=== PATIENT | female | born 1945 | race Caucasian/White ===

== ENCOUNTER → 2016-06-10 | Outpatient (REF) | payer MEDICARE, BC | LOC: M SFHCADAM 10:50 | PROVIDERS: ATTEND Family Medicine | DX: E11.9 Type 2 diabetes mellitus without complications (principal) ==

== ENCOUNTER → 2016-09-02 | Outpatient (REF) | payer MEDICARE, BC | LOC: M LAB REF 09:37 | PROVIDERS: ATTEND Physician Assistant | DX: R30.0 Dysuria (principal) ==

== ENCOUNTER → 2016-09-13 | Outpatient (REF) | payer MEDICARE, BC ==
[2016-09-13 13:18] LABS: ALBUMIN 3.9 GM/DL (3.2-5.2); ALBUMIN/GLOBULIN RATIO 1.3 (1.00-1.93); BILIRUBIN,TOTAL 0.5 MG/DL (0.2-1.0); CALCIUM LEVEL 8.7 MG/DL (8.8-10.2); GLOMERULAR FILTRATION RATE 58.4 (>39); POTASSIUM SERUM 4.2 MEQ/L (3.5-5.1); TOTAL PROTEIN 6.9 GM/DL (6.4-8.2)
== END ==
LOC: M LABDRWAD 12:25
PROVIDERS: ATTEND Internal Medicine Cardiovascular Disease
DX: R06.02 Shortness of breath (principal); E66.9 Obesity, unspecified; E11.9 Type 2 diabetes mellitus without complications; E78.2 Mixed hyperlipidemia; I10 Essential (primary) hypertension; R53.83 Other fatigue; R94.31 Abnormal electrocardiogram [ECG] [EKG]

== ENCOUNTER → 2017-03-28 | Outpatient (REF) | payer MEDICARE, BC ==
[2017-03-28 12:46] LABS: BASO % 0.6 % (0.0-1.0); EOS # 0.1 10^3/uL (0.0-0.50); EOS % 1.5 % (0.0-3.0); IMMATURE GRANULOCYTE % 0.4 % (0-0); LYMPH # 2.4 10^3/uL (1.5-4.5); LYMPH % 35.2 % (24.0-44.0); MEAN CORPUSCULAR HEMOGLOBIN 29.8 pg (27.0-33.0); MEAN CORPUSCULAR VOLUME 87.8 fl (80.0-96.0); MONO # 0.6 10^3/uL (0.0-0.8); MONO % 8.6 % (0.0-5.0); NEUTROPHILS # 3.7 10^3/uL (1.8-7.7); NEUTROPHILS % 53.7 % (36.0-66.0); PLATELET COUNT, AUTOMATED 161 10^3/uL (150-450); RED CELL DISTRIBUTION WIDTH 13.1 % (11.5-14.5); WHITE BLOOD COUNT 6.9 10^3/uL (4.0-10.0)
[2017-03-28 13:55] LABS: ALBUMIN 3.8 GM/DL (3.2-5.2); ALBUMIN/GLOBULIN RATIO 1.23 (1.00-1.93); BILIRUBIN,TOTAL 0.7 MG/DL (0.2-1.0); CALCIUM LEVEL 8.9 MG/DL (8.8-10.2); CREATININE FOR GFR 1.02 MG/DL (0.55-1.02); POTASSIUM SERUM 4.2 MEQ/L (3.5-5.1); TOTAL PROTEIN 6.9 GM/DL (6.4-8.2)
== END ==
LOC: M LABDRWAD 12:22
PROVIDERS: ATTEND Internal Medicine Cardiovascular Disease
DX: I25.10 Atherosclerotic heart disease of native coronary artery without angina pectoris (principal); R53.83 Other fatigue; R94.31 Abnormal electrocardiogram [ECG] [EKG]; R06.2 Wheezing; E66.9 Obesity, unspecified; E78.2 Mixed hyperlipidemia; E11.9 Type 2 diabetes mellitus without complications

== ENCOUNTER → 2017-04-30 | Outpatient (REF) | payer MEDICARE, BC | LOC: M LAB REF 13:53 | PROVIDERS: ATTEND Physician Assistant Medical | DX: M54.5 Low back pain (principal); E11.9 Type 2 diabetes mellitus without complications; I10 Essential (primary) hypertension ==

== ENCOUNTER → 2017-05-20 | Outpatient (REF) | payer MEDICARE, BC ==
[2017-05-20 14:17] LABS: ALBUMIN 3.9 GM/DL (3.2-5.2); ALBUMIN/GLOBULIN RATIO 1.15 (1.00-1.93); ALKALINE PHOSPHATASE 91 U/L (45-117); ALT/SGPT 63 U/L (12-78); AST/SGOT 66 U/L (7-37); BILIRUBIN,DIRECT 0.2 MG/DL (0.0-0.2); BILIRUBIN,TOTAL 0.7 MG/DL (0.2-1.0); CHOLESTEROL LEVEL 145 MG/DL (<200); CHOLESTEROL RISK RATIO 3.452 (<5); CPK CREATINE PHOSPHOKINASE 38 U/L (26-192); HDL CHOLESTEROL 42 MG/DL (>40); LDL CHOLESTEROL 67.6 MG/DL (<100); NON-HDL-C 103 MG/DL; TOTAL PROTEIN 7.3 GM/DL (6.4-8.2); TRIGLYCERIDES LEVEL 177 MG/DL (<150)
== END ==
LOC: M LABDRWAD 13:15
DX: I25.10 Atherosclerotic heart disease of native coronary artery without angina pectoris (principal); E66.9 Obesity, unspecified; E78.2 Mixed hyperlipidemia
CPT/HCPCS: 82550

== ENCOUNTER → 2017-08-25 | Outpatient (CLI) | payer MEDICARE, BC ==
[2017-08-25 14:17] LABS: ALBUMIN 4.1 GM/DL (3.2-5.2); ALBUMIN/GLOBULIN RATIO 1.21 (1.00-1.93); ALKALINE PHOSPHATASE 71 U/L (45-117); ALT/SGPT 59 U/L (12-78); ANION GAP 7 MEQ/L (8-16); AST/SGOT 45 U/L (7-37); BILIRUBIN,TOTAL 0.5 MG/DL (0.2-1.0); BLOOD UREA NITROGEN 13 MG/DL (7-18); CARBON DIOXIDE LEVEL 28 MEQ/L (21-32); CHLORIDE LEVEL 105 MEQ/L (98-107); CHOLESTEROL LEVEL 168 MG/DL (<200); CREATININE FOR GFR 0.95 MG/DL (0.55-1.30); FREE T4 1.07 NG/DL (0.76-1.46); GLOMERULAR FILTRATION RATE > 60.0 (>39); GLUCOSE, FASTING 120 MG/DL (70-100); HDL CHOLESTEROL 42 MG/DL (>40); LDL CHOLESTEROL 99.4 MG/DL (<100); NON-HDL-C 126 MG/DL; POTASSIUM SERUM 4.4 MEQ/L (3.5-5.1); SODIUM LEVEL 140 MEQ/L (136-145); THYROID STIMULATING HORMONE 0.698 uIU/ML (0.358-3.740); TOTAL PROTEIN 7.5 GM/DL (6.4-8.2); TRIGLYCERIDES LEVEL 133 MG/DL (<150)
[2017-08-25 14:38] LABS: MALB URINE SIEMENS 6.5 MG/L
[2017-08-25 14:45] LABS: ESTIMATED AVERAGE GLUCOSE 151 MG/DL (60-110); HEMOGLOBIN A1c 6.9 %
[2017-08-26 13:15] LABS: HEPATITIS C VIRUS ABY INDEX < 0.0 INDEX (<0.8)
== END ==
LOC: M SMT 10:12
DX: Z00.01 Encounter for general adult medical examination with abnormal findings (principal); E11.65 Type 2 diabetes mellitus with hyperglycemia
CPT/HCPCS: 84443

== ENCOUNTER → 2017-11-18 | Outpatient (CLI) | payer MEDICARE, BC ==
[2017-11-18 14:16] LABS: ANION GAP 9 MEQ/L (8-16); BLOOD UREA NITROGEN 16 MG/DL (7-18); CARBON DIOXIDE LEVEL 28 MEQ/L (21-32); CHLORIDE LEVEL 103 MEQ/L (98-107); CREATININE FOR GFR 1.13 MG/DL (0.55-1.30); GLOMERULAR FILTRATION RATE 50.5 (>39); GLUCOSE, FASTING 92 MG/DL (70-100); POTASSIUM SERUM 4.2 MEQ/L (3.5-5.1); SODIUM LEVEL 140 MEQ/L (136-145)
[2017-11-18 14:23] LABS: ESTIMATED AVERAGE GLUCOSE 120 MG/DL (60-110); HEMOGLOBIN A1c 5.8 %
== END ==
LOC: M SMT 09:46
DX: E11.65 Type 2 diabetes mellitus with hyperglycemia (principal)
CPT/HCPCS: 83036

== ENCOUNTER → 2018-01-11 | Outpatient (CLI) | payer MEDICARE, BC ==
[2018-01-11 14:31] LABS: ALBUMIN 4.2 GM/DL (3.2-5.2); ALBUMIN/GLOBULIN RATIO 1.45 (1.00-1.93); ALKALINE PHOSPHATASE 70 U/L (45-117); ALT/SGPT 44 U/L (12-78); ANION GAP 11 MEQ/L (8-16); AST/SGOT 39 U/L (7-37); BILIRUBIN,TOTAL 0.5 MG/DL (0.2-1.0); BLOOD UREA NITROGEN 13 MG/DL (7-18); CALCIUM LEVEL 9.1 MG/DL (8.8-10.2); CARBON DIOXIDE LEVEL 27 MEQ/L (21-32); CHLORIDE LEVEL 106 MEQ/L (98-107); CHOLESTEROL LEVEL 158 MG/DL (<200); CHOLESTEROL RISK RATIO 3.853 (<5); CREATININE FOR GFR 0.95 MG/DL (0.55-1.30); FREE T4 1.12 NG/DL (0.76-1.46); GLOMERULAR FILTRATION RATE > 60.0 (>39); GLUCOSE, FASTING 117 MG/DL (70-100); HDL CHOLESTEROL 41 MG/DL (>40); LDL CHOLESTEROL 79.8 MG/DL (<100); NON-HDL-C 117 MG/DL; POTASSIUM SERUM 4.3 MEQ/L (3.5-5.1); SODIUM LEVEL 144 MEQ/L (136-145); TOTAL PROTEIN 7.1 GM/DL (6.4-8.2); TRIGLYCERIDES LEVEL 186 MG/DL (<150)
[2018-01-11 15:44] LABS: ESTIMATED AVERAGE GLUCOSE 120 MG/DL (60-110); HEMOGLOBIN A1c 5.8 %
== END ==
LOC: M SMT 08:50
DX: E78.2 Mixed hyperlipidemia (principal); E11.9 Type 2 diabetes mellitus without complications
CPT/HCPCS: 84443

== ENCOUNTER → 2018-05-26 | Outpatient (CLI) | payer MEDICARE, OTHER ==
[2018-05-26 12:21] LABS: CALCIUM LEVEL 9.3 MG/DL (8.8-10.2); CREATININE FOR GFR 1.12 MG/DL (0.55-1.30); GLOMERULAR FILTRATION RATE 50.9 (>39); POTASSIUM SERUM 4.4 MEQ/L (3.5-5.1)
[2018-05-26 13:28] LABS: HEMOGLOBIN A1c 6.1 %
== END ==
LOC: M SMT 09:04
PROVIDERS: ATTEND Physician Assistant
DX: E11.9 Type 2 diabetes mellitus without complications (principal)

== ENCOUNTER → 2018-05-26 | Outpatient (CLI) | payer MEDICARE, OTHER ==
[2018-05-26 12:22] LABS: HEMATOCRIT 44.2 % (36.0-47.0); HEMOGLOBIN 14.5 g/dl (12.0-15.5); MEAN CORPUSCULAR HEMOGLOBIN 29.3 pg (27.0-33.0); MEAN CORPUSCULAR HGB CONC 32.8 g/dl (32.0-36.5); MEAN CORPUSCULAR VOLUME 89.3 fl (80.0-96.0); PLATELET COUNT, AUTOMATED 230 10^3/uL (150-450); RED BLOOD COUNT 4.95 10^6/uL (4.00-5.40)
[2018-05-26 12:26] LABS: ALBUMIN 4.2 GM/DL (3.2-5.2); BILIRUBIN,TOTAL 0.8 MG/DL (0.2-1.0); CALCIUM LEVEL 9.2 MG/DL (8.8-10.2); CHOLESTEROL RISK RATIO 3.59 (<5); CREATININE FOR GFR 1.11 MG/DL (0.55-1.30); GLOMERULAR FILTRATION RATE 51.4 (>39); POTASSIUM SERUM 4.4 MEQ/L (3.5-5.1); TOTAL PROTEIN 7.5 GM/DL (6.4-8.2)
== END ==
LOC: M SMT 09:08
PROVIDERS: ATTEND Internal Medicine Cardiovascular Disease
DX: R07.9 Chest pain, unspecified (principal); I65.23 Occlusion and stenosis of bilateral carotid arteries; I25.10 Atherosclerotic heart disease of native coronary artery without angina pectoris; R06.02 Shortness of breath; E66.9 Obesity, unspecified; E78.2 Mixed hyperlipidemia; I10 Essential (primary) hypertension

== ENCOUNTER → 2018-08-28 | Outpatient (CLI) | payer MEDICARE ==
[2018-08-28 13:53] LABS: BASO % 0.4 % (0.0-1.0); EOS # 0.1 10^3/uL (0.0-0.50); EOS % 1.5 % (0.0-3.0); HEMATOCRIT 38.3 % (36.0-47.0); HEMOGLOBIN 13.2 g/dl (12.0-15.5); LYMPH # 3.1 10^3/uL (1.5-4.5); LYMPH % 39.9 % (24.0-44.0); MEAN CORPUSCULAR HEMOGLOBIN 30.9 pg (27.0-33.0); MEAN CORPUSCULAR HGB CONC 34.5 g/dl (32.0-36.5); MEAN CORPUSCULAR VOLUME 89.7 fl (80.0-96.0); MONO # 0.6 10^3/uL (0.0-0.8); MONO % 7.4 % (0.0-5.0); NEUTROPHILS % 50.5 % (36.0-66.0); PLATELET COUNT, AUTOMATED 221 10^3/uL (150-450); RED BLOOD COUNT 4.27 10^6/uL (4.00-5.40); WHITE BLOOD COUNT 7.8 10^3/uL (4.0-10.0)
[2018-08-28 13:56] LABS: ALBUMIN 4.2 GM/DL (3.2-5.2); BILIRUBIN,TOTAL 0.5 MG/DL (0.2-1.0); CALCIUM LEVEL 8.8 MG/DL (8.8-10.2); CHOLESTEROL RISK RATIO 3.674 (<5); CREATININE FOR GFR 0.99 MG/DL (0.55-1.30); GLOMERULAR FILTRATION RATE 58.7 (>39); POTASSIUM SERUM 4.2 MEQ/L (3.5-5.1); TOTAL PROTEIN 6.9 GM/DL (6.4-8.2)
[2018-08-28 14:33] LABS: MALB URINE SIEMENS 9.7 MG/L
[2018-08-28 15:29] LABS: HEMOGLOBIN A1c 6.2 %
== END ==
LOC: M SMT 09:18
PROVIDERS: ATTEND Family Medicine
DX: E11.9 Type 2 diabetes mellitus without complications (principal); E78.2 Mixed hyperlipidemia; I10 Essential (primary) hypertension

== ENCOUNTER → 2018-11-24 | Outpatient (CLI) | payer MEDICARE ==
[2018-11-24 13:45] LABS: CALCIUM LEVEL 9.3 MG/DL (8.8-10.2); CREATININE FOR GFR 0.98 MG/DL (0.55-1.30); GLOMERULAR FILTRATION RATE 59.4 (>39); POTASSIUM SERUM 4.5 MEQ/L (3.5-5.1)
[2018-11-24 14:03] LABS: HEMOGLOBIN A1c 6.3 %
== END ==
LOC: M SMT 09:56
PROVIDERS: ATTEND Physician Assistant
DX: E11.9 Type 2 diabetes mellitus without complications (principal)

== ENCOUNTER → 2019-02-26 | Outpatient (CLI) | payer MEDICARE ==
[2019-02-26 10:39] LABS: BASO % 0.6 % (0.0-1.0); EOS # 0.1 10^3/uL (0.0-0.5); EOS % 2.1 % (0.0-3.0); HEMATOCRIT 40.3 % (36.0-47.0); HEMOGLOBIN 13.2 g/dl (12.0-15.5); LYMPH % 43.9 % (24.0-44.0); MEAN CORPUSCULAR HEMOGLOBIN 29.2 pg (27.0-33.0); MEAN CORPUSCULAR HGB CONC 32.8 g/dl (32.0-36.5); MEAN CORPUSCULAR VOLUME 89.2 fl (80.0-96.0); MONO # 0.5 10^3/uL (0.0-0.8); MONO % 7.8 % (0.0-5.0); NEUTROPHILS # 3.1 10^3/uL (1.5-8.5); NEUTROPHILS % 45.3 % (36.0-66.0); PLATELET COUNT, AUTOMATED 215 10^3/uL (150-450); RED BLOOD COUNT 4.52 10^6/uL (4.00-5.40); WHITE BLOOD COUNT 6.8 10^3/uL (4.0-10.0)
[2019-02-26 11:11] LABS: ALBUMIN 3.9 GM/DL (3.2-5.2); BILIRUBIN,TOTAL 0.4 MG/DL (0.2-1.0); CALCIUM LEVEL 8.8 MG/DL (8.8-10.2); CREATININE FOR GFR 1.06 MG/DL (0.55-1.30); GLOMERULAR FILTRATION RATE 54.2 (>39); POTASSIUM SERUM 4.1 MEQ/L (3.5-5.1); TOTAL PROTEIN 6.9 GM/DL (6.4-8.2)
[2019-02-26 12:40] LABS: HEMOGLOBIN A1c 6.5 %
== END ==
LOC: M SMT 08:58
PROVIDERS: ATTEND Family Medicine
DX: E11.9 Type 2 diabetes mellitus without complications (principal); I10 Essential (primary) hypertension

== ENCOUNTER → 2019-05-30 | Outpatient (CLI) | payer MEDICARE ==
[2019-05-30 13:33] LABS: ALBUMIN 4.2 GM/DL (3.2-5.2); BILIRUBIN,TOTAL 0.6 MG/DL (0.2-1.0); CALCIUM LEVEL 8.8 MG/DL (8.8-10.2); CHOLESTEROL RISK RATIO 3.775 (<5); CREATININE FOR GFR 1.16 MG/DL (0.55-1.30); FREE T4 1.25 NG/DL (0.76-1.46); GLOMERULAR FILTRATION RATE 48.8 (>39); POTASSIUM SERUM 4.4 MEQ/L (3.5-5.1); THYROID STIMULATING HORMONE 1.06 uIU/ML (0.358-3.740)
[2019-05-30 14:42] LABS: HEMOGLOBIN A1c 6.8 %
== END ==
LOC: M PLALAB 10:09
PROVIDERS: ATTEND Physician Assistant
DX: E11.9 Type 2 diabetes mellitus without complications (principal)

== ENCOUNTER → 2019-08-31 | Outpatient (REF) | payer MEDICARE ==
[2019-08-31 18:05] LABS: BASO # 0.1 10^3/uL (0.0-0.2); BASO % 0.6 % (0.0-1.0); EOS # 0.1 10^3/uL (0.0-0.5); EOS % 1.6 % (0.0-3.0); HEMATOCRIT 45.8 % (36.0-47.0); HEMOGLOBIN 15.1 g/dl (12.0-15.5); LYMPH # 3.3 10^3/uL (1.5-5.0); LYMPH % 37.8 % (24.0-44.0); MEAN CORPUSCULAR VOLUME 87.9 fl (80.0-96.0); MONO # 0.7 10^3/uL (0.0-0.8); MONO % 7.9 % (0.0-5.0); NEUTROPHILS # 4.6 10^3/uL (1.5-8.5); NEUTROPHILS % 51.9 % (36.0-66.0); PLATELET COUNT, AUTOMATED 207 10^3/uL (150-450); RED BLOOD COUNT 5.21 10^6/uL (4.00-5.40); WHITE BLOOD COUNT 8.8 10^3/uL (4.0-10.0)
[2019-08-31 18:17] LABS: ALBUMIN 4.3 GM/DL (3.2-5.2); ALT/SGPT 28 U/L (12-78); BILIRUBIN,TOTAL 1.1 MG/DL (0.2-1.0); BLOOD UREA NITROGEN 18 MG/DL (7-18); CALCIUM LEVEL 9.1 MG/DL (8.8-10.2); CARBON DIOXIDE LEVEL 28 MEQ/L (21-32); CHLORIDE LEVEL 101 MEQ/L (98-107); CREATININE FOR GFR 0.96 MG/DL (0.55-1.30); GLOMERULAR FILTRATION RATE > 60.0 (>39); GLUCOSE, FASTING 129 MG/DL (70-100); POTASSIUM SERUM 4.4 MEQ/L (3.5-5.1); SODIUM LEVEL 136 MEQ/L (136-145); TOTAL PROTEIN 7.6 GM/DL (6.4-8.2)
[2019-08-31 18:20] LABS: HEMOGLOBIN A1c 6.9 %
== END ==
LOC: M LABDRWAD 16:55
PROVIDERS: ATTEND Family Medicine
DX: 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 mellitus with diabetic chronic kidney disease (principal)

== ENCOUNTER → 2020-05-22 | Outpatient (REF) | payer MEDICARE ==
[2020-05-22 13:49] LABS: HEMOGLOBIN A1c 5.8 %
[2020-05-22 13:50] LABS: ALBUMIN 4.5 GM/DL (3.2-5.2); CALCIUM LEVEL 9.1 MG/DL (8.8-10.2); CHOLESTEROL RISK RATIO 2.4 (<5); CREATININE FOR GFR 0.97 MG/DL (0.55-1.30); GLOMERULAR FILTRATION RATE 59.8 (>39); POTASSIUM SERUM 4.1 MEQ/L (3.5-5.1); TOTAL PROTEIN 7.4 GM/DL (6.4-8.2)
[2020-05-22 14:01] LABS: MALB URINE SIEMENS 25.1 MG/L; MAU/CREAT RATIO 9.8 MCG/MG (0.0-30.0)
== END ==
LOC: M LABDRWAD 12:33
PROVIDERS: ATTEND Family Medicine
DX: 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 mellitus with diabetic chronic kidney disease (principal); E78.2 Mixed hyperlipidemia

== ENCOUNTER → 2020-06-14 | Outpatient (CLI) | payer MEDICARE ==
[~2020-06-14] MED LIST: AMLO1TAB25 PO; APPL300T4 PO; ASPI81TA26 PO; BYDU1INJ SC; CRAN400C PO; EZET10TA21 PO; HYDR12CA PO; IRBE150T14 PO; LORA-243 PO; METO100T5 PO; NITR0.4S14 SL; ROSU20TA5 PO; THERTAB52 PO; VITA-243 PO
== END ==
LOC: M LABSMTC 10:24
PROVIDERS: ATTEND Anesthesiology
DX: Z01.812 Encounter for preprocedural laboratory examination (principal); Z20.822 Contact with and (suspected) exposure to COVID-19

== ENCOUNTER 2020-06-19 10:27 | Day surgery (SDC) | payer MEDICARE ==
[~2020-06-19] VITALS: Ht 147.3 cm; Wt 64.9 kg
[~2020-06-19 10:27] MED LIST changes: +LIDOCAINE 2% 100MG/5ML SDV (FOR ANES.) As Ordered ONE; +NS 1,000 ML IV ONE; +propofoL 200 MG/20 ML VIAL As Ordered ONE
--- OUTSIDE RECORDS SUMMARY | 2020-06-19 10:37 | CCD | Continuity of Care Document ---
Author Author Alessandra DE LA GARZA D.O. Organization Unknown Address [address] [place] [address] Phone [phone] Care Team Providers Care Ear Flap Binder Name Role Phone Jane De La Garza D.O. AUTM Davis Hurt M.D. AUTM [phone] Problems Active Problems Provider Date Essential hypertension Jane De La Garza D.O. Onset: Hyperlipidemia Jane De La Garza D.O. Onset: 2014 Gastroesophageal reflux disease Jane De La Garza D.O. O nset: 01/02/2015 Obesity Jane De La Garza D.O. Onset: 2014 Type 2 diabetes mellitus Jane De La Garza D.O. Onset: 0 02/05/2015 Mixed hyperlipidemia Jane De La Garza D.O. Onset: 02/05 Essential hypertension Jane De La Garza D.O. Onset: Heart murmur Jane De La Garza D.O. Onset: 2014 Disorder of urinary tract Jane De La Garza D.O. Onset: 05/06/2015 Immunization Jane De La Garza D.O. Onset: 2014 Screening mammography Jane De La Garza D.O. Onset: 07/09 Screening for osteoporosis Jane De La Garza D.O. Onset: 08/06/2015 Adult health examination Jane De La Garza D.O. Onset: 0 11/06/2015 Malaise and fatigue Jane De La Garza D.O. Onset: 2015 Dyspnea Jane De La Garza D.O. Onset: 2015 Social History Type Date Description Comments Sex Unknown Tobacco Use Start: Unknown Never Smoked Cigarettes Smoking Status Reviewed: 03/05/20 Never Smoked Cigarettes ETOH Use Occasionally consumes alcohol Tobacco Use Start: Unknown Patient has never smoked Recreational Drug Use Denies Drug Use Exercise Type/Frequency Bikes sporadically Exercise Type/Frequency Walks daily Sun Exposure Does not use sunscreen Seat Belt/Car Seat Always uses seat belt Allergies, Adverse Reactions, Alerts Description No Known Drug Allergies Medications Active Medications SIG Qnty Indications Ordering Provide r Date Hydrochlorothiazide 12.5mg Tablets Take 1 Tablet By Mouth In The Afternoon as Needed For Edema 90tabs R60.0 Jane De La Garza D.O. 12/04/2019 Irbesartan-Hydrochlorothiazide 150-12.5mg Tablets 1 tab by mouth every day 90tabs Gladis PerazaOSamuel 02/01/2019 Amlodipine Besylate 10mg Tablets Take 1 Tablet By Mouth Daily 90tabs Gladis BookerO Samuel 08/30/2018 Metoprolol Tartrate 50mg Tablets take 2 tablets by mouth every morning and 1 tablet by mouth every evening 270tabs Jane De La Garza D.O. 01/02/2015 Rianna Aspirin Ec Low Dose 81mg Tab lets DR 1 by mouth every day Unknown Nitroglycerin 0.4mg Tablets Sub 1 under the tongue every 5 minutes for chest pain up to 3 doses as needed for chest pain Unknown Zetia 10mg Tablets 1 by mo uth every day Unknown Claritin-D 24 Hour 1 0-240mg Tablets ER 24HR 1 by mouth every day Unknown 000 Cranberry 500mg Capsules 2 cap by mouth Unknown Bydureon Bcise 2mg/0.85ML Auij inject 2mg weekly. Unknown Vitamin C 1000mg Tablets 1 by mouth every day Unknown Prevagen Extra Strength 20mg Capsu les take one capsule by mouth daily. Unknown 0 Magnesium 400mg Tablets take one tablet by mouth before bed. Unknown Rosuvastatin Calcium 20mg Tablets take one tablet by mouth nightly Unknown History Medications Esomeprazole Magnesium 20mg Capsul es DR Take 1 Capsule By Mouth In The Morning Before Breakfast allens Jane De La Garza D.O. 02/04/2020 - 03/05/2020 Immunizations CPT Code Status Date Vaccine Lot # [id number] Given 03/01/2019 Tetanus, Diphthe julianne Toxoids/Acellular Pertussis Vaccine 7 Or > [id number] Given 02/27/2018 Influenza Virus Vaccine, Quadrivalent, Split, Preservative Free [id number] Given 07/19/2013 Zoster Shingles Vaccine For Subcutaneous Injection Vital Signs Date Vital Result Comment 03/05/2020 10:21am BP Systolic 118 mmHg BP Diastolic 72 mmHg Height 58.2 inches 4'10.20" Weight 150.50 lb BMI (Body Mass Index) 31.2 kg/m2 Heart Rate 78 /min Respiratory Rate 16 /min Body Temperature 97.9 F O2 % BldC Oximetry 97 % [place] Body Weight 100 lb 12/04/2019 11:06am BP Systolic 126 mmHg BP Diastolic 70 mmHg Height 58.2 inches 4'10.20" Weight 155.25 lb BMI (Body Mass Index) 32.2 kg/m2 Heart Rate 81 /min Respiratory Rate 18 /min Body Temperature 97.9 F O2 % BldC Oximetry 99 % [place] Body Weight 100 lb Results Test Acquired Date Facility Test Result H/L Range Note Comprehensive Metabolic Profil 05/22/2020 [place] [id number] [phone] Glucose, Fasting 109 mg/dL High 70-100 Blood Urea Nitrogen 16 mg/dL Normal 7-18 Creatinine For GFR 0.97 mg/dL Normal 0.55-1.30 Glomerular Filtration Rate 59.8 Normal >39 1 Sodium Level 137 mEq/L Normal 136-145 Potassium Serum 4.1 mEq/L Normal 3.5-5.1 Chloride Level 101 mEq/L Normal 98-107 Carbon Dioxide Level 30 mEq/L Normal 21-32 Anion Gap 6 mEq/L Low 8-16 Calcium Level 9.1 mg/dL Normal 8.8-10.2 Ast/Sgot 31 U/L Normal 7-37 Alt/SGPT 33 U/L Normal 12-78 Alkaline Phosphatase 83 U/L Normal 45-117 Bilirubin,Total 1.0 mg/dL Normal 0.2-1.0 Total Protein 7.4 GM/DL Normal 6.4-8.2 Albumin 4.5 GM/DL Normal 3.2-5.2 Albumin/Globulin Ratio 1.6 Normal 1.2-2.2 Hemoglobin A1c 05/22/[address] [id number] [phone] Hemoglobin A1c 5.8 % Normal 2 Estimated Average Glucose 120 mg/dL High 60-110 Lipid Panel 05/22/[address] [address] [phone] Triglycerides Level 132 mg/dL Normal <150 Cholesterol Level 120 mg/dL Normal <200 HDL Cholesterol 50 mg/dL Normal >40 LDL Cholesterol 44 mg/dL Normal <100 Non-HDL-C 70 mg/dL Normal Cholesterol Risk Ratio 2.400 Normal <5 Microalbumin Random 05/22/[address] [address] [phone] Creatinine, Urine 256.0 mg/dL Normal Malb Urine Siemens 25.1 mg/L Normal Hood/Creat Ratio 9.8 MCG/MG Normal 0.0-30.0 3 Hemoglobin A1c 11/29/2019 [facility] Outpatient Testi ng (Registration) [address] [place] [address] [phone] Hemoglobin A1c 6.7 % Normal 4 Estimated Average Glucose 146 mg/dL High 60-110 Basic Metabolic Profile 11/29/2019 [facility] Outpatient T esting (Registration) [address] [place] [address] [phone] Glucose, Fasting 143 mg/dL High 70-100 Blood Urea Nitrogen 16 mg/dL Normal 7-18 Creatinine For GFR 0.98 mg/dL Normal 0.55-1.30 Glomerular Filtration Rate 59.2 Normal >39 5 Sodium Level 140 mEq/L Normal 136-145 Potassium Serum 4.4 mEq/L Normal 3.5-5.1 Chloride Level 105 mEq/L Normal 98-107 Carbon Dioxide Level 28 mEq/L Normal 21-32 Anion Gap 7 mEq/L Low 8-16 Calcium Level 9.0 mg/dL Normal 8.8-10.2 Lipid Panel 11/29/2019 [facility] Outpatient Testi ng (Registration) [address] [place], [place] [id number] [phone] Triglycerides Level 186 mg/dL High <150 Cholesterol Level 155 mg/dL Normal <200 HDL Cholesterol 39 mg/dL Low >40 LDL Cholesterol 79 mg/dL Normal <100 Non-HDL-C 116 mg/dL Normal Cholesterol Risk Ratio 3.974 Normal <5 FT4&TSH Panel 11/29/2019 [facility] Outpatient Testi ng (Registration) [address] [place] [address] [phone] Thyroid Stimulating Hormone 0.939 uIU/ML Normal 0. 358-3.740 Free T4 1.15 ng/dL Normal 0.76-1.46 1 Units are mL/min/1.73 m2 Chronic Kidney Disease Staging per NKF: Stage I & II GFR >=60 Normal to Mildly Decreased Stage III GFR 30-59 Moderately Decreased Stage IV GFR 15-29 Severely Decreased Stage V GFR <15 Very Little GFR Left ESRD GFR <15 on MUSIC EDUCATOR 2 REFERENCE RANGES: <=5.6% NORMAL 5.7-6.4% SUGGESTS IMPAIRED GLUCOSE META BOLISM/PREDIABETIC >= 6.5% ABNORMAL 3 THE [employer] ATION STATES THAT MICROALBUMINURIA IS PRESENT IF THE MICROALBUMIN/CREATININE RATIO EXCEEDS 30 MCG/MG. THE THRESHOLD FOR CLINICAL ALBUMINURIA IS REACHED AT 300 MCG/MG. THE CLASSIFICATION OF A PATIENT SHOULD BE BASED UPON AT LEAST 2 OF 3 ABNORMAL RESULTS ON SPECIMENS COLLECTED WITHIN A 3 TO 6 MONTH TIME FRAME. 4 REFERENCE RANGES: <=5.6% NORMAL 5.7-6.4% SUGGESTS IMPAIRED GLUCOSE META BOLISM/PREDIABETIC >= 6.5% ABNORMAL 5 Units are mL/min/1.73 m2 Chronic Kidney Disease Staging per NKF: Stage I & II GFR >=60 Normal to Mildly Decreased Stage III GFR 30-59 Moderately Decreased Stage IV GFR 15-29 Severely Decreased Stage V GFR <15 Very Little GFR Left ESRD GFR <15 on MUSIC EDUCATOR Procedures Description No Information Available Medical Devices Description No Information Available Encounters Type Date Location Provider Dx Diagnosis Office Visit 03/05/2020 10:20a [facility] JENNIFER Manzano Z00.00 Encntr for general adult med ical exam w/o abnormal findings Z12.11 Encounter for screening for malignant neoplasm of colon Z13.820 Encounter for screening for osteoporosis 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 mellitus w d iabetic chronic kidney disease E78.2 Mixed hyperlipidemia K21.9 Gastro-esophageal reflux dis ease without esophagitis I34.9 Nonrheumatic mitral valve di sorder, unspecified I12.9 Hypertensive chronic kidney disease w stg 1-4/unsp [facility] Office Visit 12/04/2019 11:00a [facility] w [place] Gladis BookerO. 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 mellitus w d iabetic chronic kidney disease E78.2 Mixed hyperlipidemia E66.09 Other obesity due to excess calories K21.9 Gastro-esophageal reflux dis ease without esophagitis I34.9 Nonrheumatic mitral valve di sorder, unspecified I12.9 Hypertensive chronic kidney disease w stg 1-4/unsp [facility] kdny Z79.899 Other fpc (current) dr stein therapy R60.0 Localized edema Z68.32 Body mass index (BMI) 32.0-3 2.9, adult Assessments Date Code Description Provider 03/05/2020 Z00.00 Encounter for genera l adult medical examination without abnormal findings JENNIFER Last 03/05/2020 Z12.11 Encounter for screening for bienvenido gnant neoplasm of colon JENNIFER Last 03/05/2020 Z13.820 Encounter for screening for oste oporosis JENNIFER Last 03/05/2020 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 mellitus with di abetic chronic kidney disease JENNIFER Last 03/05/2020 E78.2 Mixed hyperlipidemia JENNIFER Price 03/05/2020 K21.9 Gastro-esophageal reflux disease without esophagitis JENNIFER Last 03/05/2020 I34.9 Nonrheumatic mitral valve disord er, unspecified JENNIFER Last 03/05/2020 I12.9 Hypertensive chronic kidney disease with stage 1 through stage 4 chronic kidney disease, or unspecified chronic kidney disease JENNIFER Last 12/04/2019 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 mellitus with di abetic chronic kidney disease Jane De La Garza D.O. 12/04/2019 E78.2 Mixed hyperlipidemia Jane Prabhakar D.O. 12/04/2019 E66.09 Other obesity due to excess stephanie jose alejandro Jane De La Garza D.O. 12/04/2019 K21.9 Gastro-esophageal reflux disease without esophagitis Jane De La Garza D.O. 12/04/2019 I34.9 Nonrheumatic mitral valve disord er, unspecified Gladis RivasOSamuel 12/04/2019 I12.9 Hypertensive chronic kidney disease with stage 1 through stage 4 chronic kidney disease, or unspecified chronic kidney disease Jane Kennedy D.O. 12/04/2019 Z79.899 Other termite exterminator (current) drug t herapy Jane De La Garza D.O. 12/04/2019 R60.0 Localized edema Jane epstein D.O. 12/04/2019 Z68.32 Body mass index (BMI) 32.0-32.9, adult Jane De La Garza D.O. Plan of Treatment Future Appointment(s):* 06/05/2020 10:20 am - Jane De La Garza D.O. at [facility] 03/05/2020 - JENNIFER Last* Z00.00 Encounter for general adult medical examination without abnormal findings* Comments:* Your exam was unremarkable today. Call for any concerns. * Follow up:* [address] Person. * Z12.11 Encounter for screening for malignant neoplasm of colon* Comments:* We will refer you for screening colonoscopy. * Referral:* Davis Hurt M.D., Surgery,General * Z13.990 Encounter for screening for osteoporosis* New Xrays:* Dexa Bone Density Study, Vertebral Fracture Assessment, Scheduled: 03/31/20 * Comments:* We will set you up for repeat bony density test. * 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 mellitus with diabetic chronic kidney disease* Comments:* Unclear regarding glycemic control. We will review labs when they are available. * E78.2 Mixed hyperlipidemia* Comments:* Continue pravastatin as prescribed. * K21.9 Gastro-esophageal reflux disease without esophagitis* Comments:* Appears stable. * I34.9 Nonrheumatic mitral valve disorder, unspecified* Comments:* Appears stable. Continue with the recommendations of cardiology. * I12.9 Hypertensive chronic kidney disease with stage 1 through stage 4 chronic kidney disease, or unspecified chronic kidney disease* Comments:* Pending labs as noted. Functional Status Description No Information Available Mental Status Description No Information Available Referrals Refer to Reason for Referral Status Appt Date Davis Hurt M.D. 74 year old female in need o f repeat screening colonoscopy. Asymptomatic. Please eval and treat. Sent [address] [address] [phone]
--- OUTSIDE RECORDS SUMMARY | 2020-06-19 10:37 | CCD | Continuity of Care Document ---
Author Author Alessandra HURT MD Organization Unknown Address [address] [facility] [address] [place] [address] Phone [phone] Care Team Providers Care Cad Detailer Name Role Phone Miguel Angel Isidro AUTM [phone] Jane De La Garza D.O. AUTM Problems Active Problems Provider Date Essential hypertension Davis Hurt JR, MD Onset: 06/04/19 21 Social History Type Date Description Comments Sex Unknown ETOH Use Denies alcohol use Tobacco Use Start: Unknown Denies Smoking Recreational Drug Use Denies Drug Use Allergies, Adverse Reactions, Alerts Description No Known Drug Allergies Medications Active Medications SIG Qnty Indications Ordering Provide r Date Amlodipine Besylate 10mg Tablets 1 qd Unknown Ezetimibe 10mg Tablets 1 qd Unknown Hydrochlorothiazide 12.5mg Tablets 1 Mid Day Unknown Metoprolol Tartrate 100mg Tablets 1 bid Unknown Rosuvastatin Calcium 20mg Tablets 1 Q Noon Unknown Irbesartan-Hydrochlorothiazide 150-12.5mg Tablets 1 qd Unknown Bydureon Bcise 2mg/0.85ML Auij 2MG Weekly Unknown Aspirin 81mg Tablets DR 1 by mouth every day Unknown Cranberry 4200 MG qd Unknown Prevagen/Neuriva 1 qd Unknown 00 Vitamin C 1000mg Tablets 1 by mouth every day Unknown Multivitamin Adult Tablets 1 by mouth every day Unknown Apple Cider Vinegar 300mg Tablets 1 qd Unknown Nitroglycerin 0.4mg Tablets Sub prn Unknown Claritin-D 24 Hour 1 0-240mg Tablets ER 24HR 1 qd Unknown Immunizations Description No Information Available Vital Signs Date Vital Result Comment 06/04/2020 1:16pm BP Systolic 133 mmHg BP Diastolic 72 mmHg Heart Rate 79 /min Height 58 inches 4'10" Weight 145.25 lb BMI (Body Mass Index) 30.4 kg/m2 [place] Body Weight 100 lb Weight 65.885 kg BSA (Body Surface Area) 1.59 m2 Results Description No Information Available Procedures Description No Information Available Medical Devices Description No Information Available Encounters Description No Information Available Assessments Description No Information Available Plan of Treatment No Information Available Functional Status Description No Information Available Mental Status Description No Information Available Referrals Refer to Reason for Referral Status Appt Date Davis Hurt JR, MD SCREENING COLONOSCOPY Scheduled [address] [address] [phone]
--- OUTSIDE RECORDS SUMMARY | 2020-06-19 10:38 | CCD ---
Author Author [facility] Organization [facility] Address Unknown Phone Unavailable Care Team Providers Care Policy Manager Name Role Phone Fons, M Sammie TAR LEVELER Unavailable Unavailable Fons, M Sammie TAR LEVELER Unavailable Unavailable Fons, M Sammie TAR LEVELER Unavailable Unavailable Fons, M Sammie TAR LEVELER Unavailable Unavailable Fons, M Sammie TAR LEVELER Unavailable Unavailable Fons, M Sammie TAR LEVELER Unavailable Unavailable Fons, M Sammie TAR LEVELER Unavailable Unavailable Fons, M Sammie TAR LEVELER Unavailable Unavailable Fons, M Sammie TAR LEVELER Unavailable Unavailable Fons, M Sammie TAR LEVELER Unavailable Unavailable Fons, M Sammie TAR LEVELER Unavailable Unavailable Fons, M Sammie TAR LEVELER Unavailable Unavailable Fons, M Sammie TAR LEVELER Unavailable Unavailable Fons, M Sammie TAR LEVELER Unavailable Unavailable Fons, M Sammie TAR LEVELER Unavailable Unavailable Fons, M Sammie TAR LEVELER Unavailable Unavailable Fons, M Sammie TAR LEVELER Unavailable Unavailable Fons, M Sammie TAR LEVELER Unavailable Unavailable Fons, M Sammie TAR LEVELER Unavailable Unavailable Fons, M Sammie TAR LEVELER Unavailable Unavailable Fons, M Sammie TAR LEVELER Unavailable Unavailable Fons, M Sammie TAR LEVELER Unavailable Unavailable Fons, M Sammie TAR LEVELER Unavailable Unavailable Fons, M Sammie TAR LEVELER Unavailable Unavailable Fons, M Sammie TAR LEVELER Unavailable Unavailable Fons, M Sammie TAR LEVELER Unavailable Unavailable Fons, M Sammie TAR LEVELER Unavailable Unavailable Fons, M Sammie TAR LEVELER Unavailable Unavailable Fons, M Sammie TAR LEVELER Unavailable Unavailable Fons, M Sammie TAR LEVELER Unavailable Unavailable Fons, M Sammie TAR LEVELER Unavailable Unavailable Fons, M Sammie TAR LEVELER Unavailable Unavailable Fons, M Sammie TAR LEVELER Unavailable Unavailable Fons, M Sammie TAR LEVELER Unavailable Unavailable Fons, M Sammie TAR LEVELER Unavailable Unavailable Fons, M Sammie TAR LEVELER Unavailable Unavailable Fons, M Sammie TAR LEVELER Unavailable Unavailable Fons, M Sammie TAR LEVELER Unavailable Unavailable Fons, M Sammie TAR LEVELER Unavailable Unavailable Fons, M Sammie TAR LEVELER Unavailable Unavailable Fons, M Sammie TAR LEVELER Unavailable Unavailable Fons, M Sammie TAR LEVELER Unavailable Unavailable Fons, M Sammie TAR LEVELER Unavailable Unavailable Fons, M Sammie TAR LEVELER Unavailable Unavailable Fons, M Sammie TAR LEVELER Unavailable Unavailable Fons, M Sammie TAR LEVELER Unavailable Unavailable Fons, M Sammie TAR LEVELER Unavailable Unavailable Fons, M Sammie TAR LEVELER Unavailable Unavailable Fons, M Sammie TAR LEVELER Unavailable Unavailable Fons, M Sammie TAR LEVELER Unavailable Unavailable Fons, M Sammie TAR LEVELER Unavailable Unavailable Fons, M Sammie TAR LEVELER Unavailable Unavailable Fons, M Sammie TAR LEVELER Unavailable Unavailable Fons, M Sammie TAR LEVELER Unavailable Unavailable Fons, M Sammie TAR LEVELER Unavailable Unavailable Moss, L Maureen PA Unavailable Unavailable Moss, L Maureen PA Unavailable Unavailable Moss, L Maureen PA Unavailable Unavailable Moss, L Maureen PA Unavailable Unavailable Moss, L Maureen PA Unavailable Unavailable Moss, L Maureen PA Unavailable Unavailable Moss, L Maureen PA Unavailable Unavailable Moss, L Maureen PA Unavailable Unavailable Moss, L Maureen PA Unavailable Unavailable Moss, L Maureen PA Unavailable Unavailable Moss, L Maureen PA Unavailable Unavailable Moss, L Maureen PA Unavailable Unavailable Moss, L Maureen PA Unavailable Unavailable Moss, L Maureen PA Unavailable Unavailable Moss, L Maureen PA Unavailable Unavailable Moss, L Maureen PA Unavailable Unavailable Moss, L Maureen PA Unavailable Unavailable Moss, L Maureen PA Unavailable Unavailable Moss, L Maureen PA Unavailable Unavailable Moss, L Maureen PA Unavailable Unavailable Moss, L Maureen PA Unavailable Unavailable Moss, L Maureen PA Unavailable Unavailable Moss, L Maureen PA Unavailable Unavailable Moss, L Maureen PA Unavailable Unavailable Moss, L Maureen PA Unavailable Unavailable Moss, L Maureen PA Unavailable Unavailable Moss, L Maureen PA Unavailable Unavailable Moss, L Maureen PA Unavailable Unavailable Moss, L Maureen PA Unavailable Unavailable Moss, L Maureen PA Unavailable Unavailable Moss, L Maureen PA Unavailable Unavailable Moss, L Maureen PA Unavailable Unavailable Moss, L Maureen PA Unavailable Unavailable Moss, L Maureen PA Unavailable Unavailable Moss, L Maureen PA Unavailable Unavailable Moss, L Maureen PA Unavailable Unavailable Sanna, Miguel Angel PA Unavailable Unavailable Sanna, Miguel Angel PA Unavailable Unavailable Sanna, Miguel Angel PA Unavailable Unavailable Sanna, Miguel Angel PA Unavailable Unavailable Sanna, Miguel Angel PA Unavailable Unavailable Sanna, Miguel Angel PA Unavailable Unavailable Sanna, Miguel Angel PA Unavailable Unavailable Sanna, Miguel Angel PA Unavailable Unavailable Sanna, Miguel Angel PA Unavailable Unavailable Sanna, Miguel Angel PA Unavailable Unavailable Sanna, Miguel Angel PA Unavailable Unavailable Sanna, Miguel Angel PA Unavailable Unavailable Sanna, Miguel Angel PA Unavailable Unavailable Sanna, Miguel Angel PA Unavailable Unavailable Sanna, Miguel Angel PA Unavailable Unavailable Sanna, Miguel Angel PA Unavailable Unavailable Sanna, Miguel Angel PA Unavailable Unavailable Sanna, Miguel Angel PA Unavailable Unavailable Sanna, Miguel Angel PA Unavailable Unavailable Sanna, Miguel Angel PA Unavailable Unavailable Sanna, Miguel Angel PA Unavailable Unavailable Sanna, Miguel Angel PA Unavailable Unavailable Sanna, Miguel Angel PA Unavailable Unavailable Sanna, Miguel Angel PA Unavailable Unavailable Sanna, Miguel Angel PA Unavailable Unavailable Sanna, Miguel Angel PA Unavailable Unavailable Sanna, Miguel Angel PA Unavailable Unavailable Sanna, Miguel Angel PA Unavailable Unavailable Sanna, Miguel Angel PA Unavailable Unavailable Sanna, Miguel Angel PA Unavailable Unavailable Sanna, Miguel Angel PA Unavailable Unavailable Sanna, Miguel Angel PA Unavailable Unavailable Sanna, Miguel Angel PA Unavailable Unavailable Sanna, Miguel Angel PA Unavailable Unavailable Sanna, Miguel Angel PA Unavailable Unavailable Sanna, Miguel Angel PA Unavailable Unavailable Sanna, Miguel Angel PA Unavailable Unavailable Sanna, Miguel Angel PA Unavailable Unavailable Sanna, Miguel Angel PA Unavailable Unavailable Sanna, Miguel Angel PA Unavailable Unavailable Sanna, Miguel Angel PA Unavailable Unavailable Sanna, Miguel Angel PA Unavailable Unavailable Sanna, Miguel Angel PA Unavailable Unavailable Sanna, Miguel Angel PA Unavailable Unavailable Sanna, Miguel Angel PA Unavailable Unavailable Sanna, Miguel Angel PA Unavailable Unavailable Sanna, Miguel Angel PA Unavailable Unavailable Sanna, Miguel Angel PA Unavailable Unavailable Sanna, Miguel Angel PA Unavailable Unavailable SARAH-PRECIOUS, MANNY DO Unavailable Unavailable SARAH-PRECIOUS, MANNY DO Unavailable Unavailable SARAH-PRECIOUS, MANNY DO Unavailable Unavailable SARAH-PRECIOUS, MANNY DO Unavailable Unavailable SARAH-PRECIOUS, MANNY DO Unavailable Unavailable SARAH-PRECIOUS, MANNY DO Unavailable Unavailable SARAH-PRECIOUS, MANNY DO Unavailable Unavailable SARAH-PRECIOUS, MANNY DO Unavailable Unavailable SARAH-PRECIOUS, MANNY DO Unavailable Unavailable SARAH-PRECIOUS, MANNY DO Unavailable Unavailable SARAH-PRECIOUS, MANNY DO Unavailable Unavailable SARAH-PRECIOUS, MANNY DO Unavailable Unavailable SARAH-PRECIOUS, MANNY DO Unavailable Unavailable SARAH-PRECIOUS, MANNY DO Unavailable Unavailable SARAH-PRECIOUS, MANNY DO Unavailable Unavailable SARAH-PRECIOUS, MANNY DO Unavailable Unavailable SARAH-PRECIOUS, MANNY DO Unavailable Unavailable SARAH-PRECIOUS, MANNY DO Unavailable Unavailable SARAH-PRECIOUS, MANNY DO Unavailable Unavailable SARAH-PRECIOUS, MANNY DO Unavailable Unavailable SARAH-PRECIOUS, MANNY DO Unavailable Unavailable SARAH-PRECIOUS, MANNY DO Unavailable Unavailable SARAH-PRECIOUS, MANNY DO Unavailable Unavailable SARAH-PRECIOUS, MANNY DO Unavailable Unavailable SARAH-PRECIOUS, MANNY DO Unavailable Unavailable SARAH-PRECIOUS, MANNY DO Unavailable Unavailable SARAH-PRECIOUS, MANNY DO Unavailable Unavailable SARAH-PRECIOUS, MANNY DO Unavailable Unavailable SARAH-PRECIOUS, MANNY DO Unavailable Unavailable SARAH-PRECIOUS, MANNY DO Unavailable Unavailable SARAH-PRECIOUS, MANNY DO Unavailable Unavailable SARAH-PRECIOUS, MANNY DO Unavailable Unavailable SARAH-PRECIOUS, MANNY DO Unavailable Unavailable SARAH-PRECIOUS, MANNY DO Unavailable Unavailable SARAH-PRECIOUS, MANNY DO Unavailable Unavailable SARAH-PRECIOUS, MANNY DO Unavailable Unavailable SARAH-PRECIOUS, MANNY DO Unavailable Unavailable SARAH-PRECIOUS, MANNY DO Unavailable Unavailable SARAH-PRECIOUS, MANNY DO Unavailable Unavailable SARHA-PRECIOUS, MANNY DO Unavailable Unavailable SARAH-PRECIOUS, MANNY DO Unavailable Unavailable SARAH-PRECIOUS, MANNY DO Unavailable Unavailable SARAH-PRECIOUS, MANNY DO Unavailable Unavailable SARAH-PRECIOUS, MANNY DO Unavailable Unavailable SARAH-PRECIOUS, MANNY DO Unavailable Unavailable SARAH-PRECIOUS, MANNY DO Unavailable Unavailable SARAH-PRECIOUS, MANNY DO Unavailable Unavailable SARAH-PRECIOUS, MANNY DO Unavailable Unavailable SARAH-PRECIOUS, MANNY DO Unavailable Unavailable SARAH-PRECIOUS, MANNY DO Unavailable Unavailable SARAH-PRECIOUS, MANNY DO Unavailable Unavailable SARAH-PRECIOUS, MANNY DO Unavailable Unavailable SARAH-PRECIOUS, MANNY DO Unavailable Unavailable SARAH-PRECIOUS, MANNY DO Unavailable Unavailable SARAH-PRECIOUS, MANNY DO Unavailable Unavailable SARAH-PRECIOUS, MANNY DO Unavailable Unavailable SARAH-PRECIOUS, MANNY DO Unavailable Unavailable SARAH-PRECIOUS, MANNY DO Unavailable Unavailable SARAH-PRECIOUS, MANNY DO Unavailable Unavailable SARAH-PRECIOUS, MANNY DO Unavailable Unavailable SARAH-PRECIOUS, MANNY DO Unavailable Unavailable SARAH-PRECIOUS, MANNY DO Unavailable Unavailable SARAH-PRECIOUS, MANNY DO Unavailable Unavailable SARAH-PRECIOUS, MANNY DO Unavailable Unavailable SARAH-PRECIOUS, MANNY DO Unavailable Unavailable SARAH-PRECIOUS, MANNY DO Unavailable Unavailable SARAH-PRECIOUS, MANNY DO Unavailable Unavailable SARAH-PRECIOUS, MANNY DO Unavailable Unavailable SARAH-PRECIOUS, MANNY DO Unavailable Unavailable SARAH-PRECIOUS, MANNY DO Unavailable Unavailable SARAH-PRECIOUS, MANNY DO Unavailable Unavailable SARAH-PRECIOUS, MANNY DO Unavailable Unavailable SARAH-PRECIOUS, MANNY DO Unavailable Unavailable SARAH-PRECIOUS, MANNY DO Unavailable Unavailable SARAH-PRECIOUS, MANNY DO Unavailable Unavailable SARAH-PRECIOUS, MANNY DO Unavailable Unavailable SARAH-PRECIOUS, MANNY DO Unavailable Unavailable SARAH-PRECIOUS, MANNY DO Unavailable Unavailable SARAH-PRECIOUS, MANNY DO Unavailable Unavailable SARAH-PRECIOUS, MANNY DO Unavailable Unavailable SARAH-PRECIOUS, MANNY DO Unavailable Unavailable SARAH-PRECIOUS, MANNY DO Unavailable Unavailable Re-disclosure Warning The records that you are about to access may contain information from federally-assisted alcohol or drug abuse programs. If such information is present, then the following federally mandated warning applies: This information has been disclosed to you from records protected by federal confidentiality rules (42 CFR part 2). The federal rules prohibit you from making any further disclosure of this information unless further disclosure is expressly permitted by the written consent of the person to whom it pertains or as otherwise permitted by 42 CFR part 2. A general authorization for the release of medical or other information is NOT sufficient for this purpose. The Federal rules restrict any use of the information to criminally investigate or prosecute any alcohol or drug abuse patient.The records that you are about to access may contain highly sensitive health information, the redisclosure of which is protected by Article 27-F of the [facility] Public Health law. If you continue you may have access to information: Regarding HIV / AIDS; Provided by facilities licensed or operated by the [facility] Office of Mental Health; or Provided by the [facility] Office for People With Developmental Disabilities. If such information is present, then the following [facility] mandated warning applies: This information has been disclosed to you from confidential records which are protected by state law. State law prohibits you from making any further disclosure of this information without the specific written consent of the person to whom it pertains, or as otherwise permitted by law. Any unauthorized further disclosure in violation of state law may result in a fine or residential sentence or both. A general authorization for the release of medical or other information is NOT sufficient authorization for further disc losure. Allergies and Adverse Reactions Type Description Substance Reaction Status Data Source(s ) Propensity to adverse reactions ATORVASTATIN CALCIUM Atorvastatin C alcium Active [facility] Family History Family Member Name Family Member Gender Family Member Status Date o f Status Description Data Source(s) Unknown Female Problem [facility] ([facility]) Unknown Female Problem [facility] ([facility]) Unknown Female Problem [facility] ([facility]) Unknown Unknown Encounters Encounter Providers Location Date Indications Data Source(s ) Recurring Patient Referrer: MANNY JEREZ DO 06/19/2020 09:40:16 AM EST [facility] Outpatient Attender: Sammie PERRIN.CHINO-SJPSamuelCHINO 12:00:00 AM EST - 05/29/2020 11:21:31 AM EST [facility] Outpatient Referrer: Sammie PERRIN.CHINO-SJPSamuelCHINO 03/13/2020 12:00:00 AM EST [facility] Office Visit Attender: Miguel Angel RODRIGUEZ [facility] 03/05/2020 10:20:00 AM EDT [facility] ([facility]) Outpatient Attender: aSmmie RAMOS-SJP.CHINO 0 10:32:21 AM EDT - 02/07/2020 11:58:46 AM EDT [facility] Outpatient Attender: MANNY JEREZ [facility] 12/04/2019 11:00:00 AM EDT [facility] ([facility]) Outpatient Attender: Miguel Angel RODRIGUEZ [facility] 09/04/2019 10:40:00 AM EDT [facility] ([facility]) Outpatient Attender: MANNY JEREZ [facility] 06/22/2019 10:30:00 AM EST [facility] ([facility]) Outpatient Attender: Maureen RAMOS-SJP.CHINO 03/2020 12:00:00 AM EST [facility] Outpatient Attender: MANNY JEREZ [facility] 06/01/2019 08:30:00 AM EST [facility] ([facility]) Immunizations Vaccine Date Status Description Data Source(s) VARICELLA-ZOSTER VIRUS GLYCOPROTEIN E,REC/AS01B ADJUVA NT/PF 01/31/2020 12:00:00 AM EDT completed [facility] VARICELLA-ZOSTER VIRUS GLYCOPROTEIN E,REC/AS01B ADJUVA NT/PF 11/29/2019 12:00:00 AM EDT completed [facility] Medications Medication Brand Name Start Date Product Form Dose Route Admi nistrative Instructions Pharmacy Instructions Status Indications Reaction Description Data Source(s) 17.5-3.13-1.6 gram 06/12/2020 12:00:00 AM EST recon soln 354 TAKE PER 'S BOWEL PREP INSTRUCTIONS TAKE PER 'S BOWEL PREP INSTRUCTIONS SOLD: 06/14/2020 [facility] ezetimibe 10 MG Oral Tablet ezetimibe (ZETIA) 10 MG ta blet ezetimibe (ZETIA) 10 MG tablet 05/21/2020 12:00:00 AM EST 10 mg Oral active Take 10 mg by mouth daily [facility] Metoprolol Tartrate 50 MG Oral Tablet me toprolol tartrate (LOPRESSOR) 50 MG tablet metoprolol tartrate (LOPRESSOR) 50 MG tablet 05/21/2020 12:0 0:00 AM EST 100 mg Oral active Take 100 mg by m outh 2 (two) times a day [facility] Rosuvastatin calcium 20 MG Oral Tablet rosuvastatin (C RESTOR) 20 MG tablet rosuvastatin (CRESTOR) 20 MG tablet 04/16/2020 12:00:00 AM EST 20 mg Oral active Take 1 tablet (20 mg total) by m outh daily [facility] FLUAD QUADRIVALENT 0.5 ML PRSY 12217-859-75 03/13/2020 12:00:00 AM EST active INJECT INTRAMUSCULARLY DI RECTED [facility] Esomeprazole 20 MG Delayed Release Oral Capsule esomeprazole (NEXIUM) 20 MG capsule esomeprazole (NEXIUM) 20 MG capsule 02/21/2020 12:00:00 AM EDT active as needed [facility] Rosuvastatin calcium 20 MG Oral Tablet ROSUVASTATIN CALCIUM 02/08/2020 12:00:00 AM EDT tablet 30 TAKE ONE TABLET BY MOUTH ROBIN RY DAY TAKE ONE TABLET BY MOUTH EVERY DAY SOLD: 03/07/2020 [facility] Rosuvastatin calcium 20 MG Oral Tablet ROSUVASTATIN CALCIUM 02/08/2020 12:00:00 AM EDT tablet 30 TAKE ONE TABLET BY MOUTH ROBIN RY DAY TAKE ONE TABLET BY MOUTH EVERY DAY SOLD: 02/09/2020 [facility] Rosuvastatin calcium 20 MG Oral Tablet ROSUVASTATIN CALCIUM 02/08/2020 12:00:00 AM EDT tablet 30 TAKE ONE TABLET BY MOUTH ROBIN RY DAY TAKE ONE TABLET BY MOUTH EVERY DAY SOLD: 04/11/2020 [facility] Esomeprazole 20 MG Delayed Release Oral Capsule Esomeprazole Magnesium 02/04/2020 12:00:00 AM EDT completed [facility] ([facility]) Hydrochlorothiazide 12.5 MG Oral Tablet Hydrochlorothiazide 12/04/2019 12:00:00 AM EDT active [facility] ([facility]) Metoprolol Tartrate 100 MG Oral Tablet m etoprolol tartrate (LOPRESSOR) 100 MG tablet metoprolol tartrate (LOPRESSOR) 100 MG tablet 11/20/2019 12: 00:00 AM EDT aborted TAKE 1 TABLET BY MOUTH TWICE A DAY [facility] Esomeprazole 20 MG Delayed Release Oral Capsule Esomeprazole Magnesium 09/06/2019 12:00:00 AM EDT completed [facility] ([facility]) empagliflozin 10 MG Oral Tablet [Jardiance] Jardiance 06/25/2019 12:00:00 AM EST ORAL completed [facility] ([facility]) dapagliflozin 5 MG Oral Tablet [Farxiga] Farxiga 06/22/2019 12:00: 00 AM EST ORAL completed [facility] ([facility]) Magnesium Oxide (MAG-OX) 400 MG tablet [id number] 400 mg Oral aborted Take 400 mg by mouth daily [facility] Insurance Providers Payer name Policy type / Coverage type Policy ID Covered alliance party ID Covered alliance party's relationship to chavez Policy Chavez Plan Information AETNA MEDICARE [id number] SP MEBRG KLM Aetna Medicare F [id number] SELF MEBRG KLM AETNA MEDICARE MEBRGKLM Ruth MEBRG KLM AETNA MEDICARE MEBRGKLM SP MEBRG KLM AETNA MEDICARE Medicare [id number] AETNA HEALTH SEIU [place] O MEBRGKLM S MEBRGKLM AETNA MEDICARE MEBRGKLM Ruth MEBRG KLM [facility] U[facility]W Commercial [id number] Self [id number] [place] [id number] Self [id number] Aetna Commercial [id number] Self MEBRGKLM [employer] U/W Commercial [id number] Self [id number] [place] Primary [id number] Self [id number] [employer] [facility] U/W Commercial [id number] Self [id number] [place] Primary [id number] Self [id number] [facility] B[facility] MEBRGKLM SP MEBRGKLM [facility] [employer] U/W Commercial [id number] Self [id number] Medicare [facility] Medicare Primary [id number] Self [id number] [employer] U/W Commercial [id number] Self [id number] [place] Primary [id number] Self [id number] MEDICARE [id number] SP [id number] [place] 280/780 [id number] SP [id number] [employer] U/W Commercial [id number] Self [id number] Medicare [facility] Medicare Primary [id number] Self [id number] MEDICARE [id number] SP [id number] A [employer] U/W Commercial [id number] Self [id number] [place] Primary [id number] Self [id number] [place] [employer] B [id number] S [id number] MEDICARE C [id number] S [id number] A [employer] BCBS B [id number] S [id number] [employer] BCBS B [id number] S N [id number] [employer] U/W Commercial [id number] Self [id number] [place] Primary [id number] Self [id number] EXCELL[employer] BCBS [id number] Ruth [id number] MEDICARE [id number] Ruth [id number] A NESS NO FAULT [id number] SP [id number] [place] 280/780 [id number] SP [id number] [employer] U/W Commercial Self Medicare [place] Primary Self [place] 280/780 [id number] [employer] FAULT [id number] SP [id number] [employer] CLAIM#[id number] S P CLAIM#[id number] BC/BS Of [place] Medigap Part B Self Medicare [place] Primary Self BLUE CROSS BLUE SHIELD-O/P [id number] 18 [id number] MEDICARE -O/P [id number] Problems, Conditions, and Diagnoses Code Display Name Description Problem Type Effective Dates Data Source(s) [id number] Essential hypertension Essential hypertension Problem 06/04/2020 12:00:00 AM EST [facility] ([facility], ) E11.51 Type 2 diabetes mellitus wit h diabetic peripheral angiopathy without gangrene Type 2 diabetes mellitus with diabetic p Diagnosis 02/07/2020 10:32:21 AM EDT [facility] 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 Occlusion and stenosis of bilateral melissa Diagnosis 02/07/2020 10:32:21 AM EDT [facility] E78.2 Mixed hyperlipidemia Mixed hyperlipidemia Diagnosis 02/07/2020 10:32:21 AM EDT [facility] I10 Essential (primary) hypertension Essential (primary) h ypertension Diagnosis 02/07/2020 10:32:21 AM EDT [facility] R06.02 Shortness of breath Shortness of breath Diagnosis 1 10:32:21 AM EDT [facility] I25.10 Atherosclerotic heart diseas e of [place] coronary artery without angina pectoris Atherosclerotic heart disease of [place] Diagnosis 02/07/2020 10:32:21 AM EDT [facility] R94.31 Abnormal electrocardiogram [ECG] [EKG] A bnormal electrocardiogram (ECG) (EKG) Diagnosis 06/19/2019 09:37:38 AM [facility] R07.9 Chest pain, unspecified Chest pain, unspecified Diagno sis 06/19/2019 09:37:38 AM [facility] Surgeries/Procedures Procedure Description Date Indications Data Source(s) ALBUMIN URINE MICROALBUMIN SEMIQUANTITATIVE URINE, MICROALBUMIN Routine 05/22/2020 05/22/2020 12:00:00 AM [facility] HEMOGLOBIN GLYCOSYLATED A1C HEMOGLOBIN A1C Routine 05/22/2020 05/22/2020 12:00:00 AM [facility] HEPATIC FUNCTION PANEL HEPATIC FUNCTION PANEL Routine 05/22/2020 05/22/2020 12:00:00 AM EST [facility] LIPID PANEL LIPID PANEL Routine 05/22/2020 05/22/2020 1 2:00:00 AM EST [facility] BASIC METABOLIC PANEL CALCIUM TOTAL BASIC METABOLIC PANEL Routine 05/22/2020 05/22/2020 12:00:00 AM EST [facility] Results ID Date Data Source [id number] 06/14/2020 11:00:00 AM EST [facility] Name Value Range Interpretation Code Description Data Pattie rce(s) Supporting Document(s) SARS coronavirus 2 RNA Not Detected [facility] [place] This lab was ordered by [facility] and reported by [facility]. ID Date Data Source [id number] 05/22/2020 02:20:00 PM EST [facility] ([facility]) Name Value Range Interpretation Code Description Data Pattie rce(s) Supporting Document(s) Creatinine, Urine 256.0 mg/dL Normal (applies to non-numer ic results) [facility] ([facility]) Malb Urine Siemens 25.1 mg/L Normal (applies to non-numer ic results) [facility] ([facility]) Hood/Creat Ratio 9.8 MCG/MG 0.0-30.0 Normal (applies to non-numeric results) [facility] ([facility]) [facility] ASSOCIATION STATES THAT MICROALBUMINURIA IS PRESENT IF THE MICROALBUMIN/CREATININE RATIO EXCEEDS 30 MCG/MG. THE THRESHOLD FOR CLINICAL ALBUMINURIA IS REACHED AT 300 MCG/MG. THE CLASSIFICATION OF A PATIENT SHOULD BE BASED UPON AT LEAST 2 OF 3 ABNORMAL RESULTS ON SPECIMENS COLLECTED WITHIN A 3 TO 6 MONTH TIME FRAME. ID Date Data Source [id number] 05/22/2020 02:20:00 PM EST [facility] ([facility]) Name Value Range Interpretation Code Description Data Pattie rce(s) Supporting Document(s) Triglycerides Level 132 mg/dL Normal (applies to non-nume zulma results) [facility] ([facility]) Cholesterol Level 120 mg/dL Normal (applies to non-numeri c results) [facility] ([facility]) LDL Cholesterol 44 mg/dL Normal (applies to non-numeric results) [facility] ([facility]) HDL Cholesterol 50 mg/dL Normal (applies to non-numeric results) [facility] ([facility]) Cholesterol Risk Ratio 2.400 Normal (applies to non-n umeric results) [facility] ([facility]) Non-HDL-C 70 mg/dL Normal (applies to non-numeric resul ts) [facility] ([facility]) ID Date Data Source [id number] 05/22/2020 02:20:00 PM EST [facility] ([facility]) Name Value Range Interpretation Code Description Data Pattie rce(s) Supporting Document(s) Hemoglobin A1c 5.8 % Normal (applies to non-numeric r esults) [facility] ([facility]) <content>REFERENCE RANGES:</content><br/ ><content></content>
<content><=5.6% NORMAL</content>
<content>5.7-6.4% SUGGESTS IMPAIRED GLUCOSE METABOLISM/PREDIABETIC</content>
<content>>= 6.5% ABNORMAL</content>
<content></content> Estimated Average Glucose 120 mg/dL 60-110 Above high normal [facility] ([facility]) ID Date Data Source [id number] 05/22/2020 02:20:00 PM EST [facility] ([facility]) Name Value Range Interpretation Code Description Data Pattie rce(s) Supporting Document(s) Glucose, Fasting 109 mg/dL 70-100 Above high normal [facility] ([facility]) Blood Urea Nitrogen 16 mg/dL 7-18 Normal (applies to non-nume zulma results) [facility] ([facility]) Creatinine For GFR 0.97 mg/dL 0.55-1.30 Normal (applies to non -numeric results) [facility] ([facility]) Sodium Level 137 meq/L 136-145 Normal (applies to non-numeric res ults) [facility] ([facility]) Glomerular Filtration Rate 59.8 Normal (applies to n on-numeric results) [facility] ([facility]) <content>Units are mL/min/1.73 m2</content>
<content></content>
<content>Chronic Kidney Disease Staging per NKF:</content>
<content></content>
<content>Stage I & II GFR >=60 Normal to Mildly Decreased</content>
<content>Stage III GFR 30- 59 Moderately Decreased</content>
<content>Stage IV GFR 15-29 Severely Decreased</content>
<content>Stage V GFR <15 Very Little GFR Left</content>
<content>ESRD GFR <15 on KEYBOARDING TEACHER</content>
<content></content> Chloride Level 101 meq/L 98-107 Normal (applies to non-numeric r esults) [facility] ([facility]) Carbon Dioxide Level 30 meq/L 21-32 Normal (applies to non-num bj results) [facility] ([facility]) Potassium Serum 4.1 meq/L 3.5-5.1 Normal (applies to non-numeric results) [facility] ([facility]) Anion Gap 6 meq/L 8-16 Below low normal [facility] Calcium Level 9.1 mg/dL 8.8-10.2 Normal (applies to non-numeric re sults) [facility] ([facility]) Ast/Sgot 31 U/L 7-37 Normal (applies to non-numeric resul ts) [facility] ([facility]) Alt/SGPT 33 U/L 12-78 Normal (applies to non-numeric resul ts) [facility] ([facility]) Total Protein 7.4 GM/DL 6.4-8.2 Normal (applies to non-numeric re sults) [facility] ([facility]) Bilirubin,Total 1.0 mg/dL 0.2-1.0 Normal (applies to non-numeric results) [facility] ([facility]) Alkaline Phosphatase 83 U/L 45-117 Normal (applies to non-num bj results) [facility] ([facility]) Albumin 4.5 GM/DL 3.2-5.2 Normal (applies to non-numeric resul ts) [facility] ([facility]) Albumin/Globulin Ratio 1.6 1.2-2.2 Normal (applies to non-n umeric results) [facility] ([facility]) ID Date Data Source [id number] 03/17/2020 12:00:00 AM EST [facility] ([facility]) Name Value Range Interpretation Code Description Data Pattie rce(s) Supporting Document(s) SARS-CoV2 Rapid Antigen [facility] ([facility]) This lab was ordered by [facility] and reported by [facility]. ID Date Data Source [id number] 03/13/2020 01:50:59 PM EST [facility] Name Value Range Interpretation Code Description Data Pattie rce(s) Supporting Document(s) &PDF [facility] XCDVLk6jXhDIXoUi63/NVSctKMNhe7UpGCpfPNw7ZMtrKKWpX3WovGhyPXCXQWNKLkkHPEBTKFTUGESd yKE GrcJHfY6rqhJBnzqTBp8Cdz6FswTupyjnZIkOdRq4QOiNlCO3eww8NVZXjGB0fgs0HSDD4OE5ZyIs0SA LbJ6RvUZHvWNMzy2JhWD1PFD3bwHhtOcT7Ue0+QFxmDJY9wbOtmZ9UCDBeWbqqU7bOaP4x/6GBYLEJYI nTcx/ONZDGolVY2m7YaxZlT8T1wgmUbHIhSMQ+Zj91 06jhImLJiW1UtamSJ4TGlTsP449yz6Evva/+m0ukvKBySyrizjaAJ29B2I//hm9Gna0q6P8SHEY7GstA GnFNICCsi6YCtLHng+MCTHhCmTcv8jyP4UGO/vyjp/+If3+cfnkZno0HOs0vawFhnZ9nwzns+Wpw9nX/ KeH4lWTvZRcKFDF2xeAeSvm6JW6PYpJLQc1fxBa+Cp heSvCdBL+twCCpwH+Kamara+2YpJMcEQ/jMxL1JnljoRlmno7zfBpWKHqMPjZ8if88ULoHOI+XYGu2/r0lQ [file] [employer]/lUM9BjLmL+jyJo1b+KK3QXA0mh/1Hyw+dF2imtfNWidy99PafR2jdEHlVQkEixd7tdMxVbBE/EDzW [file] AgICAgICAgICAgICAgICAgICAgICAgICAgICAgICAg KJDgNOCqUKJuLKFnMEHiBEBnWROrVTCiCDJeYVBaCBEeQKNiMHDoKYVlTPIlCREiCPTgHNLsUU8RIZBd ICAgICAgICAgICAgICAgICAgICAgICAgICAgICAgICAgICAgICAgICAgICAgICAgICAgICAgICAgICAg ICAgICAgICAgICAgICAgICAgICAgICAgICAgICAgIC DcCVLwZO3YTVCqLINtEVYbVWVdDWAfZVGqEYKaLKOtBAInUEEtLONrRLSzQTAuJPEgYOBnLRIiSBVnVI DhWVNuTJRuFHEoTJDoMFOiKHXjQXNbBYHaUCHjUGZwWPDyYJDaRIXzHFRhJFWwOY6IRCXuJZYgWUPlRM AgICAgICAgICAgICAgICAgICAgICAgICAgICAgICAg UNBgPGKtYETlFTDnVAElOULeFBXzWTDiJPVsORAnHVNdVNGpZVHiSCZiQCZqOXDlUFFwOQToWBHcZU3E ICAgICAgICAgICAgICAgICAgICAgICAgICAgICAgICAgICAgICAgICAgICAgICAgICAgICAgICAgICAg ICAgICAgICAgICAgICAgICAgICAgICAgICAgICAgIC ZkUXPhNPMhGX6XZORuBBOaCLKcATOaRWDoPZQfLKSjSXHxQUWvHCMyEQSpZQAiPSDrSDWnMQLjFFYtAB MgIUUvMBUdYLPsPFPmCVJvABUfBICkSIEcSXLwXIKrXTBbXEMiNHDaCGExIPMnDCYbID5LWPXdLDNzXX AgICAgICAgICAgICAgICAgICAgICAgICAgICAgICAg ICAgICAgICAgICAgICAgICAgICAgICAgICAgICAgICAgICAgICAgICAgICAgICAgICAgICAgICAgICAg CH7SMJZvTAGrTHSiJXDkAXBdPNFzPTDlLBJkGCFyXGSgSWAwQCBeEXYkRGWaAILmSKGwKFHdTZVdGNOq ICAgICAgICAgICAgICAgICAgICAgICAgICAgICAgIC KbTDCfUDKeZSZkLJ1XTZYnJGHmYQXtRPBrPAOkXAMfZAXaJLJdDKDgORKvZMWlUYTpLKOjUHGzCJZeRN DyQDJrYUQcITFwSDHaKEThAPNbCINvYSVpPESvLPFiMHHaVUNlQFMlAFFpGXXlJWEeTEVaID3ORZ19zD Mxh8P8IGVeHO6udfb/Cz3QWAozxwOprCAbFP1NBoVz LX1lka8RYqUaQY7cgi7JOEpEYjFxF8H5pKYkAVGeFKVJSvKkS93bAOgtLi88PNntMNPvTfYlIPr5Sj1I HiVmN6mqAYZxVcN7GLUrJhV3RBLeLhC6QIIvDgIhUDytRA5Qy6YrrILeYIr+Tf5ZIL9wx8NiSObrXTBw HG4szr4GZFjBHiDdM5X7xQMuH0S5FRhuYb7ICBEvQT VyMWmbCHFQIMxcJW8FFG3icoK5BC5WgFVbVURrYSPelXZdOHb6B00hxWXmDYxaQL0CTPZ+Vivian+Pg0KIC CjKFJeIECoQlUcUJBBUvByT83kpBUcBNOuXVQ7YBGaBd8FFBVlB2SkxpWzdNqedyUoAPMdLUCDLS9VVH qqjnHvdSXslHkjPB61bSrgYL2ALn1SAcTsQQ6cdh5G wCKtHx2OHHKmQQ3LJHEzEKNoECXrOGM7XQZdKpRdNXduMFUpLAZrKJL8BNGjAOShQG3YFzNtTOYhLsJ9 KJIaQEVaDMBetn6VKTGwRJYhJlXzANRtFXDwYFLoEAmuMMShTQTmJXssVLWpWDEmRC3QTjOrEWBwTWN3 VlbwWUVnSXItcs2ZXPGzOEHrRxF5VkJlGQNuRUVlUT gyVCZjOUS1VDfkFAWgTMEwUL7HLwEhNOZwQCD8PQIdXIUxIMRvap8YASTbSMNkIDK0XHCvSQPcZWVbVB amANZqRWG2Qjn9HPCzZVZqVU4NFkEgUJLeSZQbPpYcMEEuZQQiwa3VUCVpXGEnHWVpCKQfETXlBKIaAY jcKIWaQMGxGwG5RXEdMBSuER1GUyFeMMZvAWQ4MjLy QJWeJHZvft9EIRLdNRXyTQn0ALElRKJaWBXgXBlmVOFmXROyULIsIIMyMPVxWU7TWbSeHXKaAKv5HIDt YJCnWSZsvm5EFBHzJQKzPAP2KbAuFBDtJULpMMjzVMKyCJLkFJg5TJGyVYWmZJ9KFpOaVUEsJhK5Xljq OCTnIPEwwd2TbQRpsBveuz3DKIsTYs5KoDzuXGRwIA lgPi8lvIPsDVGqGFEFPl5TisQzTUEvUNPWGYymSNAuXGF6WDc5DLLkNDH3MBAsUFooWoS1XsEoP9S4KZ FaUNSbUcW5ABo4DtZ2NSDhCLK2VGCoTZReXKObYjH6WxOiDXY2KfF+EZ1oZYj+Bx8Vv1VulnF9abOzDQ glOosfUC0VZYBSY2DIBv== ID Date Data Source [id number] 02/26/2020 12:00:[address] [facility] Name Value Range Interpretation Code Description Data Pattie rce(s) Supporting Document(s) SARS coronavirus [address] [facility] This lab was ordered by [facility] and reported by [facility]. ID Date Data Source [id number] 01/16/2020 12:00:00 AM EDT [facility] JENNIFER Dick Patient Name: KENRICK HOFF [id number] Date of :1945[place] [address] Date of Exam: 01/16/2020#: Fax: [id number] : MAMMO SCREENING WITH CADCLINICAL INFORMATION: Screening.Based on the personal and family history information your patient suppliedat the time of imaging, her lifetime risk of breast cancer estimated by theTyrer-Cuzick model is 10.8%. Gi alphonse that this patient has less than 20% TCrisk score, no further medical management is currently recommended at thistime.Your patient's personal and/or family history of cancer submitted at thetime of imaging is suggestive of a hereditary cancer syndrome. She meetsthe criteria for genetic testing established by [facility] and [employer] guidelines. She should pursue arisk assessment with a hereditary cancer specialist which may includetesting based on these criteria. The benefits and limitations of genetictesting would be discussed, including potential changes to medicalmanagement based on the results. Your patient declined myRisk genetictesting at this time.Digital screening (2D) mammography was performed bilaterally in the CC andMLO projections. Additionally, breast tomosynthesis (3D mammography) wasperformed bilaterally in the CC and MLO projections. Today's exam wascompared to the prior exam(s).By history, the patient has no complaints of a palpable breast abnormalityor other significant breast complaints.The patient states that a clinical breast exam was not performed.The breasts are unchanged in size and shape. There are no mohsen-soft tissuedensities or spiculated masses. There is no internal architecturaldistortion. There are no suspicious mohsen-calcific clusters. Skinthickening or nipple retraction is not present.Benign calcifications are again seen bilaterally.The Volpara volumetric breast density category is B, there are scatteredareas of fibroglandular density.IMPRESSION:BI-RADS Category 2 - Benign Finding(s). Stable mammogram. There is noevidence of malignant alteration of the breasts. Followup examinationrecommended in one year.This mammogram was read with the assistance of [employer], an FDAapproved computer aided detection system for mammography.Negative x-ray reports should not delay surgical consultation if a dominantor clinically suspicious mass is present.Not all breast cancers can be identified by mammography. Therefore, werecommend that you continue to perform regular breast self-examination andphysical examination and then promptly contact your physician of anyconcerns or changes.Adenosis and dense breasts may obscure an underlying neoplasm.JASON Smith/Radha you for referring KENRICK HOFF to our office. Electronically Signed - RUTH ANDREWS DO 01/18/20 8:53 Name Value Range Interpretation Code Description Data Pattie rce(s) Supporting Document(s) ID Date Data Source [id number] 11/29/2019 10:30:00 AM EDT [facility] ([facility]) Name Value Range Interpretation Code Description Data Pattie rce(s) Supporting Document(s) Free T4 1.15 ng/dL 0.76-1.46 Normal (applies to non-numeric resul ts) [facility] ([facility]) Thyroid Stimulating Hormone 0.939 uIU/ML 0.358-3.740 Norm al (applies to non- numeric results) [facility] ([facility]) ID Date Data Source [id number] 11/29/2019 10:30:00 AM EDT [facility] ([facility]) Name Value Range Interpretation Code Description Data Pattie rce(s) Supporting Document(s) Triglycerides Level 186 mg/dL Above high normal [facility] ([facility]) Cholesterol Level 155 mg/dL Normal (applies to non-numeri c results) [facility] ([facility]) LDL Cholesterol 79 mg/dL Normal (applies to non-numeric results) [facility] ([facility]) HDL Cholesterol 39 mg/dL Below low normal [facility] ([facility]) Non-HDL-C 116 mg/dL Normal (applies to non-numeric resul ts) [facility] ([facility]) Cholesterol Risk Ratio 3.974 Normal (applies to non-n umeric results) [facility] ([facility]) ID Date Data Source [id number] 11/29/2019 10:30:00 AM EDT [facility] ([facility]) Name Value Range Interpretation Code Description Data Pattie rce(s) Supporting Document(s) Glucose, Fasting 143 mg/dL 70-100 Above high normal [facility] Glomerular Filtration Rate 59.2 Normal (applies to n on-numeric results) [facility] ([facility]) <content>Units are mL/min/1.73 m2</content>
<content></content>
<content>Chronic Kidney Disease Staging per NKF:</content>
<content></content>
<content>Stage I & II GFR >=60 Normal to Mildly Decreased</content>
<content>Stage III GFR 30- 59 Moderately Decreased</content>
<content>Stage IV GFR 15-29 Severely Decreased</content>
<content>Stage V GFR <15 Very Little GFR Left</content>
<content>ESRD GFR <15 on KEYBOARDING TEACHER</content>
<content></content> Blood Urea Nitrogen 16 mg/dL 7-18 Normal (applies to non-nume zulma results) [facility] ([facility]) Creatinine For GFR 0.98 mg/dL 0.55-1.30 Normal (applies to non -numeric results) [facility] ([facility]) Sodium Level 140 meq/L 136-145 Normal (applies to non-numeric res ults) [facility] ([facility]) Potassium Serum 4.4 meq/L 3.5-5.1 Normal (applies to non-numeric results) [facility] ([facility]) Anion Gap 7 meq/L 8-16 Below low normal [facility] ( [facility]) Carbon Dioxide Level 28 meq/L 21-32 Normal (applies to non-num bj results) [facility] ([facility]) Chloride Level 105 meq/L 98-107 Normal (applies to non-numeric r esults) [facility] ([facility]) Calcium Level 9.0 mg/dL 8.8-10.2 Normal (applies to non-numeric re sults) [facility] ([facility]) ID Date Data Source [id number] 11/29/2019 10:30:00 AM EDT [facility] ([facility]) Name Value Range Interpretation Code Description Data Pattie rce(s) Supporting Document(s) Hemoglobin A1c 6.7 % Normal (applies to non-numeric r esults) [facility] ([facility]) <content>REFERENCE RANGES:</content><br/ ><content></content>
<content><=5.6% NORMAL</content>
<content>5.7-6.4% SUGGESTS IMPAIRED GLUCOSE METABOLISM/PREDIABETIC</content>
<content>>= 6.5% ABNORMAL</content>
<content></content> Estimated Average Glucose 146 mg/dL 60-110 Above high normal [facility] ([facility]) ID Date Data Source [id number] 08/31/2019 12:27:00 PM EDT [facility] ([facility]) Name Value Range Interpretation Code Description Data Pattie rce(s) Supporting Document(s) White Blood Count 8.8 10 4.0-10.0 Normal (applies to non-numeri c results) [facility] ([facility]) Hematocrit 45.8 % 36.0-47.0 Normal (applies to non-numeric resul ts) [facility] ([facility]) Red Blood Count 5.21 10 4.00-5.40 Normal (applies to non-numeric results) [facility] ([facility]) Hemoglobin 15.1 g/dL 12.0-15.5 Normal (applies to non-numeric resul ts) [facility] ([facility]) Mean Corpuscular Volume 87.9 fl 80.0-96.0 Normal ( applies to non-numeric results) [facility] ([facility]) Mean Corpuscular HGB Conc 33.0 g/dL 32.0-36.5 Normal (applies to non-numeric results) [facility] ([facility]) Mean Corpuscular Hemoglobin 29.0 pg 27.0-33.0 Norm al (applies to non-numeric results) [facility] ([facility]) Red Cell Distribution Width 13.4 % 11.5-14.5 Norm al (applies to non-numeric results) [facility] ([facility]) Neutrophils % 51.9 % 36.0-66.0 Normal (applies to non-numeric re sults) [facility] ([facility]) Platelet Count, Automated 207 10 150-450 Normal (applies to non-numeric results) [facility] ([facility]) Lymph % 37.8 % 24.0-44.0 Normal (applies to non-numeric resul ts) [facility] ([facility]) [place] % 7.9 % 0.0-5.0 Above high normal [facility] ([facility]) Immature Granulocyte % 0.2 % 0-3.0 Normal (applies to non-n umeric results) [facility] ([facility]) Eos % 1.6 % 0.0-3.0 Normal (applies to non-numeric resul ts) [facility] ([facility]) Baso % 0.6 % 0.0-1.0 Normal (applies to non-numeric resul ts) [facility] ([facility]) Nucleated Red Blood Cell % 0.0 % 0-0 Normal (applies to n on-numeric results) [facility] ([facility]) Lymph # 3.3 10 1.5-5.0 Normal (applies to non-numeric resul ts) [facility] ([facility]) Neutrophils # 4.6 10 1.5-8.5 Normal (applies to non-numeric re sults) [facility] ([facility]) Baso # 0.1 10 0.0-0.2 Normal (applies to non-numeric resul ts) [facility] ([facility]) Eos # 0.1 10 0.0-0.5 Normal (applies to non-numeric resul ts) [facility] ([facility]) [place] # 0.7 10 0.0-0.8 Normal (applies to non-numeric resul ts) [facility] ([facility]) ID Date Data Source [id number] 08/31/2019 12:27:00 PM EDT [facility] ([facility]) Name Value Range Interpretation Code Description Data Pattie rce(s) Supporting Document(s) Creatinine For GFR 0.96 mg/dL 0.55-1.30 Normal (applies to non -numeric results) [facility] ([facility]) Glucose, Fasting 129 mg/dL 70-100 Above high normal [facility] Blood Urea Nitrogen 18 mg/dL 7-18 Normal (applies to non-nume zulma results) [facility] ([facility]) Potassium Serum 4.4 meq/L 3.5-5.1 Normal (applies to non-numeric results) [facility] ([facility]) Glomerular Filtration Rate Laboratory test result Normal (applies to non- numeric results) [facility] ([facility]) <content>Units are mL/min/1.73 m2</content>
<content></content>
<content>Chronic Kidney Disease Staging per NKF:</content>
<content></content>
<content>Stage I & II GFR >=60 Normal to Mildly Decreased</content>
<content>Stage III GFR 30- 59 Moderately Decreased</content>
<content>Stage IV GFR 15-29 Severely Decreased</content>
<content>Stage V GFR <15 Very Little GFR Left</content>
<content>ESRD GFR <15 on KEYBOARDING TEACHER</content>
<content></content> Sodium Level 136 meq/L 136-145 Normal (applies to non-numeric res ults) [facility] ([facility]) Chloride Level 101 meq/L 98-107 Normal (applies to non-numeric r esults) [facility] ([facility]) Calcium Level 9.1 mg/dL 8.8-10.2 Normal (applies to non-numeric re sults) [facility] ([facility]) Anion Gap 7 meq/L 8-16 Below low normal [facility] Carbon Dioxide Level 28 meq/L 21-32 Normal (applies to non-num bj results) [facility] ([facility]) Ast/Sgot 24 U/L 7-37 Normal (applies to non-numeric resul ts) [facility] ([facility]) Alkaline Phosphatase 83 U/L 45-117 Normal (applies to non-num bj results) [facility] ([facility]) Alt/SGPT 28 U/L 12-78 Normal (applies to non-numeric resul ts) [facility] ([facility]) Albumin/Globulin Ratio 1.30 1.00-1.93 Normal (applies to non-numeric results) [facility] ([facility]) Albumin 4.3 GM/DL 3.2-5.2 Normal (applies to non-numeric resul ts) [facility] ([facility]) Total Protein 7.6 GM/DL 6.4-8.2 Normal (applies to non-numeric re sults) [facility] ([facility]) Bilirubin,Total 1.1 mg/dL 0.2-1.0 Above high normal [facility] ([facility]) ID Date Data Source [id number] 08/31/2019 12:27:00 PM EDT [facility] ([facility]) Name Value Range Interpretation Code Description Data Pattie rce(s) Supporting Document(s) Hemoglobin A1c 6.9 % Normal (applies to non-numeric r esults) [facility] ([facility]) REFERENCE RANGES: 4.5-5.6% NORMAL 5.7-6.4% SUGGESTS IMPAIRED GLUCOSE META BOLISM >= 6.5% ABNORMAL Estimated Average Glucose 151 mg/dL 60-110 Above high normal [facility] ([facility]) ID Date Data Source [id number] 05/30/2019 10:10:00 AM EST [facility] ([facility]) Name Value Range Interpretation Code Description Data Pattie rce(s) Supporting Document(s) Hemoglobin A1c 6.8 % Normal (applies to non-numeric r esults) [facility] ([facility]) REFERENCE RANGES: 4.5-5.6% NORMAL 5.7-6.4% SUGGESTS IMPAIRED GLUCOSE META BOLISM >= 6.5% ABNORMAL Estimated Average Glucose 148 mg/dL 60-110 Above high normal [facility] ([facility]) ID Date Data Source [id number] 05/30/2019 10:10:00 AM EST [facility] ([facility]) Name Value Range Interpretation Code Description Data Pattie rce(s) Supporting Document(s) Free T4 1.25 ng/dL 0.76-1.46 Normal (applies to non-numeric resul ts) [facility] ([facility]) Thyroid Stimulating Hormone 1.060 uIU/ML 0.358-3.740 Norm al (applies to non- numeric results) [facility] ([facility]) ID Date Data Source [id number] 05/30/2019 10:10:00 AM EST [facility] ([facility]) Name Value Range Interpretation Code Description Data Pattie rce(s) Supporting Document(s) Cholesterol Level 151 mg/dL Normal (applies to non-numeri c results) [facility] ([facility]) Triglycerides Level 137 mg/dL Normal (applies to non-nume zulma results) [facility] [facility] ([facility] HDL Cholesterol 40 mg/dL Normal (applies to non-numeric results) [facility] ([facility]) LDL Cholesterol 84 mg/dL Normal (applies to non-numeric results) [facility] ([facility]) Non-HDL-C 111 mg/dL Normal (applies to non-numeric resul ts) [facility] ([facility]) Cholesterol Risk Ratio 3.775 Normal (applies to non-n umeric results) [facility] ([facility]) ID Date Data Source [id number] 05/30/2019 10:10:00 AM EST [facility] ([facility]) Name Value Range Interpretation Code Description Data Pattie rce(s) Supporting Document(s) Glucose, Fasting 139 mg/dL 70-100 Above high normal [facility] ([facility]) Blood Urea Nitrogen 20 mg/dL 7-18 Above high normal [facility] ([facility]) Glomerular Filtration Rate 48.8 Normal (applies to n on-numeric results) [facility] ([facility]) <content>Units are mL/min/1.73 m2</content>
<content></content>
<content>Chronic Kidney Disease Staging per NKF:</content>
<content></content>
<content>Stage I & II GFR >=60 Normal to Mildly Decreased</content>
<content>Stage III GFR 30- 59 Moderately Decreased</content>
<content>Stage IV GFR 15-29 Severely Decreased</content>
<content>Stage V GFR <15 Very Little GFR Left</content>
<content>ESRD GFR <15 on [employer]ARD[employer] TE[employer]ER</content>
<content></content> Creatinine For GFR 1.16 mg/dL 0.55-1.30 Normal (applies to non -numeric results) [facility] ([facility]) Potassium Serum 4.4 meq/L 3.5-5.1 Normal (applies to non-numeric results) [facility] ([facility]) Chloride Level 104 meq/L 98-107 Normal (applies to non-numeric r esults) [facility] ([facility]) Sodium Level 139 meq/L 136-145 Normal (applies to non-numeric res ults) [facility] ([facility]) Anion Gap 5 meq/L 8-16 Below low normal [facility] Carbon Dioxide Level 30 meq/L 21-32 Normal (applies to non-num bj results) [facility] ([facility]) Calcium Level 8.8 mg/dL 8.8-10.2 Normal (applies to non-numeric re sults) [facility] ([facility]) Ast/Sgot 25 U/L 7-37 Normal (applies to non-numeric resul ts) [facility] ([facility]) Alkaline Phosphatase 62 U/L 45-117 Normal (applies to non-num bj results) [facility] ([facility]) Bilirubin,Total 0.6 mg/dL 0.2-1.0 Normal (applies to non-numeric results) [facility] ([facility]) Alt/SGPT 33 U/L 12-78 Normal (applies to non-numeric resul ts) [facility] ([facility]) Albumin 4.2 GM/DL 3.2-5.2 Normal (applies to non-numeric resul ts) [facility] ([facility]) Total Protein 7.0 GM/DL 6.4-8.2 Normal (applies to non-numeric re sults) [facility] ([facility]) Albumin/Globulin Ratio 1.50 1.00-1.93 Normal (applies to non-numeric results) [facility] ([facility]) Procedure Social History Code Duration Value Status Description Data Source(s ) Alcohol intake 05/29/2020 12:00:00 AM EST Not Currently completed [facility] Smoking 05/29/2020 12:00:00 AM EST Never smoker completed Never s moker [facility] Smoking 03/05/2020 12:00:00 AM EDT Never Smoked Cigarettes com pleted Never Smoked Cigarettes [facility] ([facility]) Vital Signs ID Date Data Source UNK Name Value Range Interpretation Code Description Data Source(s) Body surface area Derived from formula 1.59 m2 1.59 m2 [facility] ([facility], ) Body weight 65.885 kg 65.885 kg [facility] ([facility], ) Secor body weight 100 [lb_av] 100 [lb_av] [facility] ([facility]) Body mass index (BMI) [Ratio] 30.4 kg/m2 30.4 k g/m2 [facility] ([facility]) Body weight 145.25 [lb_av] 145.25 [lb_av] [facility] ([facility], ) Body height 58 [in_i] 58 [in_i] [facility] ([facility], ) 4'10" Heart rate 79 /min 79 /min [facility] ([facility], ) Diastolic blood pressure 72 mm[Hg] 72 mm[Hg] [facility] ([facility], ) Systolic blood pressure 133 mm[Hg] 133 mm[Hg] [facility] [place] ([facility], ) Body mass index (BMI) [Ratio] 30.10 kg/m2 30.10 kg/m2 [facility] Body weight 65.318 kg 65.318 kg [facility] Body height 147.3 cm 147.3 cm [facility] Diastolic blood pressure 64 mm[Hg] 64 mm[Hg] [facility] Systolic blood pressure 114 mm[Hg] 114 mm[Hg] [facility] Secor body weight 100 [lb_av] 100 [lb_av] [facility] ([facility]) Oxygen saturation in Arterial blood by Pulse oximetry 97 % 97 % [facility] ([facility]) Body temperature 97.9 [degF] 97.9 [degF] [facility] ([facility]) Respiratory rate 16 /min 16 /min [facility] ( [facility]) Heart rate 78 /min 78 /min [facility] ([facility]) Body mass index (BMI) [Ratio] 31.2 kg/m2 31.2 k g/m2 [facility] ([facility]) Body weight 150.50 [lb_av] 150.50 [lb_av] [facility] ([facility]) Body height 58.2 [in_i] 58.2 [in_i] [facility] ([facility]) 4'10.20" Diastolic blood pressure 72 mm[Hg] 72 mm[Hg] [facility] ([facility]) Systolic blood pressure 118 mm[Hg] 118 mm[Hg] [facility] [place] ([facility]) Secor body weight 100 [lb_av] 100 [lb_av] [facility] ([facility]) Oxygen saturation in Arterial blood by Pulse oximetry 99 % 99 % [facility] ([facility]) Body temperature 97.9 [degF] 97.9 [degF] [facility] ([facility]) Respiratory rate 18 /min 18 /min [facility] ( [facility]) Heart rate 81 /min 81 /min [facility] ([facility]) Body mass index (BMI) [Ratio] 32.2 kg/m2 32.2 k g/m2 [facility] ([facility]) Body weight 155.25 [lb_av] 155.25 [lb_av] [facility] ([facility]) Body height 58.2 [in_i] 58.2 [in_i] [facility] ([facility]) " Diastolic blood pressure 70 mm[Hg] 70 mm[Hg] [facility] ([facility]) Systolic blood pressure 126 mm[Hg] 126 mm[Hg] [facility] ([facility]) Oxygen saturation in Arterial blood by Pulse oximetry 98 % 98 % [facility] ([facility]) Body temperature 98.6 [degF] 98.6 [degF] [facility] ([facility]) Respiratory rate 18 /min 18 /min [facility] ( [facility]) Heart rate 60 /min 60 /min [facility] ([facility]) Body mass index (BMI) [Ratio] 32.6 kg/m2 32.6 k g/m2 [facility] ([facility]) Body weight 157.00 [lb_av] 157.00 [lb_av] [facility] ([facility]) Body height 58.2 [in_i] 58.2 [in_i] [facility] ([facility]) .20" Diastolic blood pressure 82 mm[Hg] 82 mm[Hg] [facility] ([facility]) Systolic blood pressure 112 mm[Hg] 112 mm[Hg] [facility] ([facility]) Oxygen saturation in Arterial blood by Pulse oximetry 98 % 98 % [facility] ([facility]) Body temperature 97.9 [degF] 97.9 [degF] [facility] ([facility]) Respiratory rate 18 /min 18 /min [facility] ( [facility]) Heart rate 88 /min 88 /min [facility] ([facility]) Body mass index (BMI) [Ratio] 34.3 kg/m2 34.3 k g/m2 [facility] ([facility]) Body weight 165.25 [lb_av] 165.25 [lb_av] [facility] ([facility]) Body height 58.2 [in_i] 58.2 [in_i] [facility] ([facility]) " Diastolic blood pressure 70 mm[Hg] 70 mm[Hg] [facility] ([facility]) Systolic blood pressure 130 mm[Hg] 130 mm[Hg] [facility] Oxygen saturation in Arterial blood by Pulse oximetry 97 % 97 % [facility] ([facility]) Body temperature 97.9 [degF] 97.9 [degF] [facility] ([facility]) Respiratory rate 18 /min 18 /min [facility] ( [facility]) Heart rate 81 /min 81 /min [facility] ([facility]) Body mass index (BMI) [Ratio] 33.6 kg/m2 33.6 k g/m2 [facility] ([facility]) Body weight 162.12 [lb_av] 162.12 [lb_av] [facility] Body height 58.2 [in_i] 58.2 [in_i] [facility] ([facility]) " Diastolic blood pressure 70 mm[Hg] 70 mm[Hg] [facility] ([facility]) Systolic blood pressure 128 mm[Hg] 128 mm[Hg] [facility] ([facility]) Patient Treatment Plan of Care Planned Activity Planned Date Details Description Data Source (s) Metoprolol Tartrate 50 MG Oral Tablet 05/21/2020 12:00:00 AM [facility] ezetimibe 10 MG Oral Tablet 05/21/2020 12:00:00 AM [facility] Rosuvastatin calcium 20 MG Oral Tablet 04/16/2020 12:00:00 AM EST [facility] FLUAD QUADRIVALENT 0.5 ML PRSY 03/13/2020 12:00:00 AM EST [facility] Esomeprazole 20 MG Delayed Release Oral Capsule 02/21/2020 12:00:00 AM EDT [facility] Metoprolol Tartrate 100 MG Oral Tablet 11/20/2019 12:00:00 AM EDT [facility] Magnesium Oxide (MAG-OX) 400 MG tablet [facility]
--- NOTE | 2020-06-19 11:53 | ROOR ---
Patient Name: Alessandra Arthur Procedure Date: 06/19/2020 11:28 AM Date of : 1945 Age: 75 Room: [facility] Gender: Female Note Status: Finalized Procedure: Colonoscopy Indications: Screening for colorectal malignant neoplasm Providers: Davis Hurt Jr, MD Referring MD: Jane JEREZ DO Requesting Provider: Medicines: Propofol per Anesthesia Complications: No immediate complications. Procedure: Pre-Anesthesia Assessment: - Prior to the procedure, a History and Physical was performed, and patient medications and allergies were reviewed. The patient is competent. The risks and benefits of the procedure and the sedation options and risks were discussed with the patient. All questions were answered and informed consent was obtained. Patient identification and proposed procedure were verified by the physician and the nurse in the pre-procedure area and in the procedure room. Mental Status Examination: alert and oriented. Airway Examination: normal oropharyngeal airway and neck mobility. Respiratory Examination: clear to auscultation. CV Examination: normal. ASA Grade Assessment: II - A patient with mild systemic disease. After reviewing the risks and benefits, the patient was deemed in satisfactory condition to undergo the procedure. The anesthesia plan was to use moderate sedation / analgesia (conscious sedation). Immediately prior to administration of medications, the patient was re-assessed for adequacy to receive sedatives. The heart rate, respiratory rate, oxygen saturations, blood pressure, adequacy of pulmonary ventilation, and response to care were monitored throughout the procedure. The physical status of the patient was re-assessed after the procedure. The Colonoscope was introduced through the anus and advanced to the cecum, identified by the appendiceal orifice. The colonoscopy was performed without difficulty. The patient tolerated the procedure well. The quality of the bowel preparation was adequate. Findings: The rectum, recto-sigmoid colon, sigmoid colon, descending colon, transverse colon, cecum, appendiceal orifice and ileocecal valve appeared normal. A small polyp was found in the ascending colon. The polyp was removed with a jumbo cold forceps. Resection and retrieval were complete. Impression: - The rectum, recto-sigmoid colon, sigmoid colon, descending colon, transverse colon, cecum, appendiceal orifice and ileocecal valve are normal. - One small polyp in the ascending colon, removed with a jumbo cold forceps. Resected and retrieved. Recommendation: - Discharge patient to home (ambulatory). - Repeat colonoscopy in 5-10 years for surveillance based on pathology results. Procedure Code(s): --- Professional --- 89004, Colonoscopy, flexible; with biopsy, single or multiple Diagnosis Code(s): --- Professional --- Z12.11, Encounter for screening for malignant neoplasm of colon K63.5, Polyp of colon CPT copyright 2019 [employer]. All rights reserved. The codes documented in this report are preliminary and upon orthodontist small business owner review may be revised to meet current compliance requirements. Davis Hurt MD Davis Hurt Jr, MD 06/19/2020 11:53:03 AM Electronically signed by Davis Hurt Jr, MD Number of Addenda: 0 Note Initiated On: 06/19/2020 11:28 AM Estimated Blood Loss: Estimated blood loss: none.
[2020-06-19 12:10] VITALS: BP 135/64
== END 2020-06-19 12:20 | disposition home or self-care (01) ==
LOC: M OPP 10:27
PROVIDERS: ATTEND Surgery
DX: Z12.11 Encounter for screening for malignant neoplasm of colon (principal); D12.6 Benign neoplasm of colon, unspecified; I25.10 Atherosclerotic heart disease of native coronary artery without angina pectoris; I25.2 Old myocardial infarction; I10 Essential (primary) hypertension; E78.5 Hyperlipidemia, unspecified; R60.0 Localized edema; E11.9 Type 2 diabetes mellitus without complications; R12 Heartburn; R01.1 Cardiac murmur, unspecified; Z79.82 Long term (current) use of aspirin; Z79.899 Other long term (current) drug therapy

== ENCOUNTER → 2020-08-25 | Outpatient (REF) | payer MEDICARE ==
[~2020-08-25] MED LIST changes: -LIDOCAINE 2% 100MG/5ML SDV (FOR ANES.) As Ordered ONE; -NS 1,000 ML IV ONE; -propofoL 200 MG/20 ML VIAL As Ordered ONE
[2020-08-25 12:57] LABS: BASO # 0.1 10^3/uL (0.0-0.2); BASO % 0.6 % (0.0-1.0); EOS # 0.2 10^3/uL (0.0-0.5); EOS % 1.9 % (0.0-3.0); HEMATOCRIT 40.2 % (36.0-47.0); HEMOGLOBIN 13.5 g/dl (12.0-15.5); LYMPH # 3.7 10^3/uL (1.5-5.0); MEAN CORPUSCULAR HEMOGLOBIN 29.3 pg (27.0-33.0); MEAN CORPUSCULAR HGB CONC 33.6 g/dl (32.0-36.5); MEAN CORPUSCULAR VOLUME 87.4 fl (80.0-96.0); MONO # 0.7 10^3/uL (0.0-0.8); MONO % 8.1 % (2.0-8.0); NEUTROPHILS # 3.7 10^3/uL (1.5-8.5); PLATELET COUNT, AUTOMATED 204 10^3/uL (150-450); WHITE BLOOD COUNT 8.3 10^3/uL (4.0-10.0)
[2020-08-25 14:43] LABS: ALBUMIN 4.1 GM/DL (3.2-5.2); BILIRUBIN,TOTAL 1.1 MG/DL (0.2-1.0); CALCIUM LEVEL 9.6 MG/DL (8.8-10.2); CHOLESTEROL RISK RATIO 2.391 (<5); CREATININE FOR GFR 1.07 MG/DL (0.55-1.30); FREE T4 1.18 NG/DL (0.76-1.46); GLOMERULAR FILTRATION RATE 53.4 (>39); THYROID STIMULATING HORMONE 1.3 uIU/ML (0.358-3.740); TOTAL PROTEIN 6.9 GM/DL (6.4-8.2)
[2020-08-25 16:18] LABS: HEMOGLOBIN A1c 5.5 %
== END ==
LOC: M LABDRWAD 12:12
PROVIDERS: ATTEND Family Medicine
DX: 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 mellitus with diabetic chronic kidney disease (principal); E78.2 Mixed hyperlipidemia; I12.9 Hypertensive chronic kidney disease with stage 1 through stage 4 chronic kidney disease, or unspecified chronic kidney disease

== ENCOUNTER → 2020-11-27 | Outpatient (REF) | payer MEDICARE ==
[2020-11-27 13:17] LABS: BLOOD UREA NITROGEN 20 MG/DL (7-18); CARBON DIOXIDE LEVEL 27 MEQ/L (21-32); CHLORIDE LEVEL 105 MEQ/L (98-107); CREATININE FOR GFR 0.93 MG/DL (0.55-1.30); GLOMERULAR FILTRATION RATE > 60.0 (>39); GLUCOSE, FASTING 114 MG/DL (70-100); POTASSIUM SERUM 4.2 MEQ/L (3.5-5.1); SODIUM LEVEL 139 MEQ/L (136-145)
[2020-11-27 13:47] LABS: MALB URINE SIEMENS 9.4 MG/L; MAU/CREAT RATIO 5.1 MCG/MG (0.0-30.0)
[2020-11-27 13:50] LABS: HEMOGLOBIN A1c 5.3 %
== END ==
LOC: M LABDRWAD 12:23
PROVIDERS: ATTEND Physician Assistant
DX: 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 mellitus with diabetic chronic kidney disease (principal); E11.9 Type 2 diabetes mellitus without complications

== ENCOUNTER → 2021-03-06 | Outpatient (REF) | payer MEDICARE ==
[2021-03-06 13:45] LABS: HEMOGLOBIN A1c 5.6 %
[2021-03-06 14:04] LABS: ALBUMIN 3.9 GM/DL (3.2-5.2); ALT/SGPT 28 U/L (12-78); BILIRUBIN,TOTAL 0.7 MG/DL (0.2-1.0); BLOOD UREA NITROGEN 20 MG/DL (7-18); CALCIUM LEVEL 8.9 MG/DL (8.8-10.2); CARBON DIOXIDE LEVEL 30 MEQ/L (21-32); CHLORIDE LEVEL 105 MEQ/L (98-107); CHOLESTEROL LEVEL 126 MG/DL (<200); CREATININE FOR GFR 0.87 MG/DL (0.55-1.30); GLOMERULAR FILTRATION RATE > 60.0 (>39); GLUCOSE, FASTING 126 MG/DL (70-100); HDL CHOLESTEROL 50 MG/DL (>40); LDL CHOLESTEROL 43 MG/DL (<100); NON-HDL-C 76 MG/DL; POTASSIUM SERUM 4.1 MEQ/L (3.5-5.1); SODIUM LEVEL 140 MEQ/L (136-145); TOTAL PROTEIN 6.7 GM/DL (6.4-8.2); TRIGLYCERIDES LEVEL 167 MG/DL (<150)
== END ==
LOC: M LABDRWAD 12:35
PROVIDERS: ATTEND Family Medicine
DX: 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 mellitus with diabetic chronic kidney disease (principal); E78.2 Mixed hyperlipidemia

== ENCOUNTER → 2021-06-15 | Outpatient (REF) | payer MEDICARE ==
[2021-06-15 13:54] LABS: CALCIUM LEVEL 9.1 MG/DL (8.8-10.2); CREATININE FOR GFR 1.02 MG/DL (0.55-1.30); GLOMERULAR FILTRATION RATE 56.2 (>39); POTASSIUM SERUM 4.2 MEQ/L (3.5-5.1)
[2021-06-15 14:47] LABS: HEMOGLOBIN A1c 5.5 %
== END ==
LOC: M LABDRWAD 12:14
PROVIDERS: ATTEND Physician Assistant
DX: 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 mellitus with diabetic chronic kidney disease (principal)

== ENCOUNTER → 2021-08-26 | Outpatient (CLI) | payer MEDICARE | LOC: M WHC 10:53 | PROVIDERS: ATTEND Family Medicine | DX: Z12.31 Encounter for screening mammogram for malignant neoplasm of breast (principal); Z13.820 Encounter for screening for osteoporosis ==

== ENCOUNTER → 2023-06-27 | Outpatient (REF) | payer MEDICARE ==
[~2023-06-27] MED LIST changes: -ROSU20TA5 PO; +ROSU20TA61 PO
[2023-06-27 15:37] LABS: HEMOGLOBIN A1c 6.3 % (4.0-6.0)
[2023-06-27 15:47] LABS: ALKALINE PHOSPHATASE 179 U/L (46-116); ALT/SGPT 40 U/L (7.0-40); AST/SGOT 35 U/L (<34); BLOOD UREA NITROGEN 17 MG/DL (9-23); CARBON DIOXIDE LEVEL 25 MMOL/L (20-31); CHLORIDE LEVEL 100 MMOL/L (98-107); CHOLESTEROL LEVEL 108 MG/DL (<200); CHOLESTEROL RISK RATIO 2.91 (<5); CREATININE FOR GFR 0.91 MG/DL (0.55-1.30); GLOMERULAR FILTRATION RATE > 60.0 (>39); GLUCOSE, FASTING 131 MG/DL (74-106); HDL CHOLESTEROL 37.1 MG/DL (>40); LDL CHOLESTEROL 30.7 MG/DL (<100); NON-HDL-C 70.9 MG/DL; POTASSIUM SERUM 3.7 MMOL/L (3.5-5.1); SODIUM LEVEL 135 MMOL/L (136-145); TRIGLYCERIDES LEVEL 201 MG/DL (<150)
== END ==
LOC: M LABDRWAD 14:57
PROVIDERS: ATTEND Student in an Organized Health Care Education/Training Program
DX: E11.69 Type 2 diabetes mellitus with other specified complication (principal); E78.5 Hyperlipidemia, unspecified